=== PATIENT | female | born 2000 | race Caucasian/White ===

== ENCOUNTER 2023-07-10 18:31 | Inpatient (IN) ==
--- NOTE | 2023-07-10 18:42 | Emergency Department Note ---
Impression & Plan Depression with suicidal ideation ED Provider Note NAME: ERIK PRATT AGE: 23 SEX: F : 2000 ARRIVES VIA: Walk-In INFORMANT: Patient, ED PROVIDER(S): Wallace Correa MD CHIEF COMPLAINT: Suicidal ideation, overdose MEDICAL DECISION MAKING: Patient presents due to concern for suicidal ideation and taking 200 mg of hydroxyzine. Patient had blood work completed was to medically cleared. Patient has a normal white count hemoglobin and platelet count kidney function is unremarkable. Urinalysis without evidence of infection. test negative. Salicylate Tylenol and alcohol negative urine drug screen negative. She was seen and evaluated by psych bilingual case manager and referrals were made. Patient was accepted by [facility] and was admitted for inpatient treatment. Discussion w/ other healthcare providers: None Prior /Outside records reviewed: None Differential diagnosis: Mood disorder, infection, hypoglycemia, electrolyte abnormalities, dehydration, medication side effect among others were considered. Diagnostics, as interpreted by me: ECG: Normal sinus rhythm, rate of 70, normal intervals, normal axis no ST elevations. Medical decision rules: Suicide risk severity score Imaging studies: I informally interpreted the patient's with formal report to follow. HPI: Patient presents due to concern for suicidal ideation and had taken 225 mg of hydroxyzine around 5 PM. Patient states that she does feel little bit foggy but does not complain of any tiredness. Patient denies any chest pains or shortness of breath no nausea vomiting. 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 Patient is from [place]. Patient uses alcohol occasionally as well as weed but denies any tobacco use. Patient states that her sleep has been too much sleeping 11 hours regularly. Patient states that she has been limiting what she is eating and skipping meals and does have a history of eating issues. The patient was seen at crisis today and referred here for further evaluation and treatment. The patient does follow with caps and crisis. Patient states she is compliant with her medications no recent changes or missed doses. She states that she feels safe at home and does live by herself. Patient denies any HI or AVH. 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 Uses alcohol socially uses marijuana occasionally. Denies tobacco use. HOME MEDICATIONS: See Below ALLERGIES: See Below VITALS: See Below PHYSICAL EXAMINATION: GENERAL: NAD, non-toxic. EYE EXAM: Normal conjunctiva. PERRL, no anisocoria and EOM's grossly intact w/o pain. OROPHARYNX: Moist mucus membranes, grossly normal dentition. NECK: Trachea midline, no stridor. Supple, no nuchal rigidity, no adenopathy, non-tender. No signs of meningismus. FROM of the neck with good chin to chest and neck extension. LUNGS: Clear to auscultation. Normal chest wall mechanics. HEART: NSR, no MRG. ABDOMEN: Abdomen soft, non-tender, no masses, no rebound or guarding. BACK: No CVA TTP. SKIN: No rashes and no bruising. Superficial cuts to the left upper extremity. UPPER EXTREMITIES: Upper extremities are grossly normal. LOWER EXTREMITIES: Grossly normal, no edema. NEURO EXAM: A&O x3, cranial nerves II-XII grossly intact, normal speech, moves all 4 extremities. Psych: Positive SI with plan, denies SI rate AVH. Past Med/Surg History Social History Smoking Status: Never smoker Preferred Language: Albanian Communication Ability: Effective Training Developer Required: No Beliefs That Will Affect Care: None Feels Safe at Home: Yes Gender Identity: Female Assistive Devices: None Allergies Allergies Allergy/AdvReac Type Severity Reaction Status Date / Time No Known Drug Allergies Allergy Verified 03/28/23 16:03 Home Meds Home Medications Medication Instructions Recorded Confirmed famotidine [Pepcid] 20 mg PO BID 03/28/23 07/10/23 levocetirizine 5 mg tablet (Xyzal) 5 mg PO BID 03/28/23 03/28/23 desvenlafaxine 100 mg 100 mg PO DAILY 07/10/23 07/10/23 tablet,extended release 24 hr lamotrigine 150 mg tablet 150 mg PO DAILY 07/10/23 07/10/23 montelukast 10 mg tablet 10 mg DAILY 07/10/23 07/10/23 omalizumab 150 mg/mL subcutaneous mg subcut 07/10/23 syringe (Xolair) Results & Data (ED) Vital Signs Vital Signs - 24 hr 07/10/23 18:33 07/10/23 22:46 Temperature 36.6 C Temperature Source Temporal Artery Scan Pulse Rate 89 Respiratory Rate 18 Respiratory Effort / Characteristics Non-Labored Spontaneous Respiratory Depth Normal Respiratory Pattern Regular Blood Pressure 146/88 H Blood Pressure Mean 107 Blood Pressure Position Sitting Pulse Oximetry 100 Oxygen Delivery Method Room Air Room Air Sepsis Recent Fever Within 48 Hours No Sepsis New/Unexplained Change in Mental Status N/A Sepsis Action Taken by Nursing No Action Required Home Medications Current Medication List: was personally reviewed by me Laboratory Data Attestation: I reviewed the patient's lab results. 07/10/23 18:56 07/10/23 18:56 Lab Results 07/10/23 Range/Units 18:56 WBC 5.22 (4.8-10.8) K/ul RBC 4.23 (4.20-5.40) M/uL Hgb 12.5 (12.0-16.0) g/dl Hct 36.9 L (37.0-47.0) % MCV 87.2 (80.0-100.0) fL MCH 29.6 (25.0-34.0) pg MCHC 33.9 (32.0-36.0) g/dL RDW Std Deviation 38.9 (36.4-46.3) fL RDW Coeff of Felicity 12.2 (11.5-14.5) % Plt Count 329 (130-400) K/uL MPV 8.9 L (9.4-12.4) fL Immature Gran % (Auto) 0.2 % Neut % (Auto) 46.9 % Lymph % (Auto) 43.1 % [place] % (Auto) 7.1 % Eos % (Auto) 2.1 % Baso % (Auto) 0.6 % Neut # (Auto) 2.45 (1.40-6.50) K/uL Lymph # (Auto) 2.25 (1.20-3.40) K/uL [place] # (Auto) 0.37 (0.11-0.59) K/uL Eos # (Auto) 0.11 (0.00-0.50) K/uL Baso # (Auto) 0.03 (0.00-0.20) K/uL Immature Gran # (Auto) 0.01 (0.01-0.20) K/uL Sodium 138 (136-145) mmol/L Potassium 3.8 (3.5-5.1) mmol/L Chloride 106 (98-107) mmol/L Carbon Dioxide 25 (21-32) mmol/L Anion Gap 7 (3-11) BUN 19 (6-23) mg/dl Creatinine 0.82 (0.6-1.2) mg/dl Est Cr Clr Drug Dosing 106.5 ml/min Est GFR ( Amer) 115.3 ml/min Est GFR (Non-Af Amer) 99.5 ml/min BUN/Creatinine Ratio 23.2 H (10-20) Glucose 102 H (70-99(Fasting)) mg/dl Calcium 9.4 (8.6-10.3) mg/dl Total Bilirubin 0.4 (0.2-1.0) mg/dl AST 13 (13-39) U/L ALT 10 (7-52) U/L Alkaline Phosphatase 67 (34-104) U/L Total Protein 7.8 (6.0-8.3) gm/dl Albumin 4.5 (3.4-5.0) gm/dl Globulin 3.3 (2.5-4.0) gm/dl Albumin/Globulin Ratio 1.4 (0.9-2) TSH 3.359 (0.300-4.500) uIu/ml Urine Color Yellow Urine Appearance Clear (Clear) Urine pH 7.0 (4.5-7.5) Ur Specific [place] 1.009 (1.000-1.030) Urine Protein Negative (Negative) Urine Glucose (UA) Negative (Negative) Urine Ketones Negative (Negative) Urine Blood Negative (Negative) Urine Nitrite Negative (Negative) Urine Bilirubin Negative (Negative) Urine Urobilinogen Negative (Negative) Ur Leukocyte Esterase Negative (Negative) Urine Test Negative (Negative) Salicylates < 3.0 L (3.0-30) mg/dl Urine Opiates Screen Neg (Neg) Ur Methadone, Qual Neg (Neg) Acetaminophen < 3 L (10-30) ug/ml Urine Barbiturates Neg (Neg) Ur Phencyclidine (PCP) Neg (Neg) U Amphetamin/Meth Scrn Neg (Neg) MDMA (Ecstasy) Screen Neg (Neg) U Benzodiazepines Scrn Neg (Neg) Ur Cocaine Metabolite Neg (Neg) U Marijuana (THC) Screen Neg (Neg) Ethyl Alcohol mg/dL < 10.0 (<10.0) mg/dl Discharge Plan Visit Data Chief Complaint: Mental Health Evaluation Stated Complaint: SUCIDAL ED Provider: Wallace Correa Discharge Problem: Depression with suicidal ideation Patient Disposition: Admitted As Inpatient Discharge Instructions Interventions: ED Discharge Assessment Last Done: 07/10/23 22:46
[2023-07-10 19:46] LABS: Albumin Globulin Ratio 1.4 (0.9-2); Albumin Level 4.5 gm/dl (3.4-5.0); BUN Creatinine Ratio 23.2 (10-20); Bilirubin,Total 0.4 mg/dl (0.2-1.0); Calcium 9.4 mg/dl (8.6-10.3); Creatinine Clr Calc Pharmacy 106.5 ml/min; Est GFR (African American) 115.3 ml/min; Est GFR (Non-African American) 99.5 ml/min; Globulin 3.3 gm/dl (2.5-4.0); Potassium 3.8 mmol/L (3.5-5.1); Total Protein 7.8 gm/dl (6.0-8.3)
[2023-07-10 19:47] LABS: Appearance Urine Clear (Clear); Bilirubin Urine Negative (Negative); Blood Urine Negative (Negative); Color Urine Yellow; Glucose Urine UA Negative (Negative); Ketones Urine Negative (Negative); Leukocyte Esterase Urine Negative (Negative); Nitrite Urine Negative (Negative); Protein Urine Negative (Negative); Specific Gravity Urine 1.009 (1.000-1.030); Urobilinogen Urine Negative (Negative)
[2023-07-10 19:48] LABS: Acetaminophen < 3 ug/ml (10-30); Basophils # (auto) 0.03 K/uL (0.00-0.20); Basophils % (auto) 0.6 %; Eosinophils # (auto) 0.11 K/uL (0.00-0.50); Eosinophils % (auto) 2.1 %; Hematocrit (blood only) 36.9 % (37.0-47.0); Hemoglobin 12.5 g/dl (12.0-16.0); Immature Granulocytes # (auto) 0.01 K/uL (0.01-0.20); Immature Granulocytes % (auto) 0.2 %; Lymphocytes # (auto) 2.25 K/uL (1.20-3.40); Lymphocytes % (auto) 43.1 %; Mean Corpuscular Hemoglobin 29.6 pg (25.0-34.0); Mean Corpuscular Hgb Conc 33.9 g/dL (32.0-36.0); Mean Corpuscular Volume 87.2 fL (80.0-100.0); Mean Platelet Volume 8.9 fL (9.4-12.4); Monocytes # (auto) 0.37 K/uL (0.11-0.59); Monocytes % (auto) 7.1 %; Neutrophils # (auto) 2.45 K/uL (1.40-6.50); Neutrophils % (auto) 46.9 %; Platelet Count 329 K/uL (130-400); RDW Coefficient of Variation 12.2 % (11.5-14.5); RDW Standard Deviation 38.9 fL (36.4-46.3); Red Blood Count 4.23 M/uL (4.20-5.40); Salicylate < 3.0 mg/dl (3.0-30); White Blood Count 5.22 K/ul (4.8-10.8)
[2023-07-10 19:49] LABS: Pregnancy Test, Urine Negative (Negative)
[2023-07-10 20:02] LABS: Thyroid Stimulating Hormone 3.359 uIu/ml (0.300-4.500)
[2023-07-10 20:15] LABS: Amphetamines+Metham, Urine Neg (Neg); Barbiturates, Urine Neg (Neg); Benzodiazepine, Urine Neg (Neg); Cocaine, Urine Neg (Neg); MDMA (Ecstacy), Urine Neg (Neg); Marijuana, Urine Neg (Neg); Methadone, Urine Neg (Neg); Opiate, Urine Neg (Neg); Phencyclidine, Urine Neg (Neg)
[2023-07-10] MEDS ORDERED: ACETAMINOPHEN 325 MG TAB PO PRN (23:04)
[2023-07-10] MEDS ORDERED: BISMUTH SUBSALICYLATE LIQD 236 ML PO PRN (23:04)
[2023-07-10] MEDS ORDERED: MAGNESIUM HYDROXIDE SUSP 30 ML UDC PO PRN (23:04)
[2023-07-10] MEDS ORDERED: SODIUM CHLORIDE 0.65% NA SOLN 45 ML (OCEAN) PRN (23:04)
--- OUTSIDE RECORDS SUMMARY | 2023-07-11 08:46 | External Medical Summary | Summary of Care ---
Author Name Unknown Organization [facility] Address [address] [place] [address] Phone [phone] Care Team Providers Care Assembler [employer] Name Role Phone Unavailable Primary Care Provider Unavailabl e Reason for Visit * Reason Comments Medication Administration Xolair * Precert (Within 10 days (routine)) - Authorized Specialty Diagnoses / Procedures Referred By Dayami t Referred To Contact Allergy & Immunology Diagnoses Idiopathic urticaria Procedures INJECTION, OMALIZUMAB, 5 MG Fredis Dave MD [address] [facility] [place] [address] Fredis Dave MD [address] [facility] [place] [address] Referral ID Status Reason Start Date Expiration Date V isits Requested Visits Authorized [id number] Authorized Precert 03/19/2023 03/19/2024 [id number] Encounter Details Date Type Department Care Team (Late st Contact Info) Description 06/14/2023 9:00 AM EST Nurse Only Allergy/Immunology Kimmie Casanova [place] [address] [facility] [place] [id number] Jocelyne Nurse Allergy [facility] [address] [facility] [place] [address] Medication Administration (Xolair) Allergies No known active allergiesdocumented as of this encounter (statuses as of 06/14/2023) Medications Medication Sig Dispensed Refills Start Date End Date Status Nortrel (28) 1-35 MG-MCG Oral Tablet Take 1 Tablet by mouth in the morning. 0 06/28/2021 Active hydrOXYzine HCl 25 MG Oral Tablet Use 1 tablet every 4-6 hours for worsening itching, hives or swelling episodes 35 Tablet 2 08/23/2021 Active Azelastine HCl 0.1 % Nasal Solution (Astelin) Administer 2 Sprays into nostril in the morning and 2 Sprays before bedtime. 90 mL 3 08/28/2022 Active EPINEPHrine 0.3 MG/0.3ML Injection Solution Auto-injector (Autoinjector) For a severe reaction: Inject in outer thigh following instructions on package and go to the Emergency room. 2 Each 2 09/10/2022 Active Xolair 150 MG/ML Subcutaneous Solution Prefilled Syringe (Omalizumab) Inject 300 mg under the skin every 4 weeks. 2 mL 11 09/10/2022 Active Levocetirizine Dihydrochloride 5 MG Oral Tablet (Xyzal Allergy 24HR) Take 1 Tablet by mouth every evening. 90 Tablet 3 09/24/2022 Active buPROPion HCl ER (XL) 300 MG Oral Tablet Extended Release 24 Hour (Wellbutrin XL) TAKE 1 TABLET BY MOUTH EVERY DAY IN THE MORNING 0 02/15/2023 Active busPIRone HCl 5 MG Oral Tablet (Buspar) Take 1 Tablet by mouth in the morning and 1 Tablet before bedtime. 0 03/05/2023 Active Famotidine 20 MG Oral Tablet (Pepcid) TAKE 1 TABLET BY MOUTH IN THE MORNING AND BEFORE BEDTIME 180 Tablet 2 05/29/2023 Active Montelukast Sodium 10 MG Oral Tablet (Singulair) TAKE 1 TABLET BY MOUTH EVERY MORNING 90 Tablet 2 05/29/2023 Active Hospital, Clinic, or Other Facility Administered Medication Ordered Dose Route Frequency Start Date End Date Status Omalizumab (Xolair) inj 300 mgIndications:Chronic urticaria,Idiopathic urticaria 300 mg SC [id number] 10/11/2022 Active documented as of this encounter (statuses as of 06/14/2023) Active Problems Problem Noted Date Diagnosed Date Chronic urticaria 08/14/2021 Overview: since 05/13/21 Seasonal allergic rhinitis due to pollen 022 documented as of this encounter (statuses as of 06/14/2023) Social History Tobacco Use Types Packs/Day Years Used Date Smoking Tobacco: Never Smokeless Tobacco: Never Comments:No passive smoke ex possure Alcohol Use Standard Drinks/Week Comments Yes 0 (1 standard drink = 0.6 oz pur e alcohol) Occasionally Sex and Gender Information Value Date Recorded Sex Assigned at Not on file Gender Identity Not on file Sexual Orientation Not on file Job Start Date Occupation Industry Not on file Not on file Not on file documented as of this encounter Nursing Notes * Ada Valverde LPN - 06/14/2023 9:54 AM EST Pt with no clinical changes since injections. Injection sites with no wheal and no flare. Pt verbalized understanding to keep epi pen on his/her person for next 24 hours * Ada Valverde LPN - 06/14/2023 9:33 AM EST Pt arrived in clinic for Xolair injection. Pt has Epi pen on her person. Pt with no recent hive flare ups or other health issues today. Pt aware to stay in clinic 30 minutes post injection. documented in this encounter Plan of Treatment Upcoming Encounters Date Type Department Care Team (Late st Contact Info) Description 09/19/2023 10:30 AM EDT Office Visit Allergy/Immunology [place] [facility]a Nieto [address] [place] [id number] Shayla Lainez PA-C [address] [place] [address] [id number] Health Maintenance Due Date Last Done Comments Hepatitis B (1 of 3 - 3-dose series) 2000 GARDASIL-HPV IMMUNIZATION SERIES (1 - 2-dose series) 2009 Depression Screening 2010 HIV Screening 2013 Hepatitis C Screening 2016 DTaP,Tdap,and Td Vaccines (1 - Tdap) 2017 Pap Smear 2019 COVID-19 Vaccine Completed 02/25/2023, 02/19/2022, 05/02/2021 Influenza Vaccine (FLU shot) Completed 06/2022, 02/19/2022, 02/27/2021 MENINGOCOCCAL (MENACTRA/MENVEO) Aged Out No longer eligible b ased on patient's age to complete this topic Pneumococcal Vaccine: Pediatrics (0 to 5 Years) and At-Risk Patients (6 to 64 Years) Aged Out No longer eligible b ased on patient's age to complete this topic documented as of this encounter Medical Devices Not on filedocumented as of this encounter Visit Diagnoses Diagnosis Chronic urticaria- Primary Other specified urticaria documented in this encounter Administered Medications Active Administered Medications - up to 3 most recent administrations Medication Order MAR Action Action Date Dose Rate Site Omalizumab (Xolair) inj 300 mg 300 mg, Subcutaneous, [id number], First dose on Ver[place] 10/11/22 at 1130, Until Discontinued, Inject 300mg ( 2 syringes) every 4 weeks subcutaneously Given 06/14/2023 9:24 AM EST 300 mg Arm Left Upper Given 05/14/2023 4:01 PM EST 300 mg Ar m Left Upper Given 04/08/2023 10:26 AM EST 300 mg A rm Left Upper documented in this encounter
--- OUTSIDE RECORDS SUMMARY | 2023-07-11 08:46 | External Medical Summary | Summary of Care ---
Author Name Unknown Organization [facility] Address [address] [place] [address] Phone [phone] Care Team Providers Care Babcock Tester Name Role Phone Unavailable Primary Care Provider Unavailabl e Reason for Visit * Reason Onset Date Comments Precert In Process 03/15/2023 Xolair [facility] Ca rol Encounter Details Date Type Department Care Team (Late st Contact Info) Description 03/15/2023 [facility] [address] [place] [address] Fredis Dave MD [address] [place] [address] Precert In Process ([email or web address] Jaclyn ) Allergies No known active allergiesdocumented as of this encounter (statuses as of 03/19/2023) Medications Medication Sig Dispensed Refills Start Date End Date Status Nortrel (28) 1-35 MG-MCG Oral Tablet Take 1 Tablet by mouth in the morning. 0 06/28/2021 Active hydrOXYzine HCl 25 MG Oral Tablet Use 1 tablet every 4-6 hours for worsening itching, hives or swelling episodes 35 Tablet 2 08/23/2021 Active Montelukast Sodium 10 MG Oral Tablet (Singulair) Take 1 Tablet by mouth every morning. 90 Tablet 3 05/30/2022 Active Famotidine 20 MG Oral Tablet (Pepcid) Take 1 Tablet by mouth in the morning and 1 Tablet before bedtime. 180 Tablet 3 05/30/2022 Active Azelastine HCl 0.1 % Nasal Solution [...] 1 Tablet before bedtime. 0 03/05/2023 Active Hospital, Clinic, or Other Facility Administered Medication Ordered Dose Route Frequency Start Date End Date Status Omalizumab (Xolair) inj 300 mgIndications:Chronic urticaria,Idiopathic urticaria 300 mg SC [id number] 10/11/2022 Active documented as of this encounter (statuses as of 03/19/2023) Active Problems Problem Noted Date Diagnosed Date Chronic urticaria 08/14/2021 Overview: since 05/13/21 Seasonal allergic rhinitis due to pollen 022 documented as of this encounter (statuses as of 03/19/2023) Social History Tobacco Use Types Packs/Day Years [...] on file documented as of this encounter Miscellaneous Notes * Telephone Encounter - LILLIAM Winter - 03/15/2023 10:24 AM EDT Requested auth. MALLORY PRATT Lugo: [id number] - PA help? Call us at Status Sent to [facility] Xolair 150MG/ML syringes Form [employer] [place] Form (2016 NCPDP) * Telephone Encounter - Ada Valverde, ANGELINA - 03/15/2023 9:49 AM EDT Images from the original note were not included. [facility] Allergy Medicine Pre-Cert Request Medication/Disease State Information: Medication: Xolair 300mg ( 2 150mg prefilled syringes Is the patient able and willing to self inject? No. Reason: Pt is anxious and passes out while trying to self inject. Patient will continue to receive injections in-clinic. Has patient been prescribed an EpiPen: Yes Informed consent obtained: Yes Diagnosis (including ICD-10): Chronic Urticaria L50.8 Clinic Administered Medication - route pre-cert request to [id number] Medication(s) Tried/Failed/Contraindicated: See corresponding visit note(s) for additional supporting clinical information. Office Information: Prescriber: Fredis Dave Encounter Date: 08/23/2022 SUBJECTIVE: Mallory is here today for follow-up of her chronic urticaria and chronic allergic rhinitis. Since ourlast visit approximately 4 months ago, she believes that her urticaria may be slightly getting worse. However she notes that she has had increased stress and does relate her urticaria to stress in general. As you may recall she started developed hives in April of 2021 and had daily hives until the summertime. She did well for unclear reasons until February when her hives returned. At our last visit we had change her to a regimen of Pepcid 20 mg twice daily, Xyzal 5 mg twice daily and Singulair 10 mg daily. She does use hydroxyzine on a as needed basis for any increased hives but she also reports that the hydroxyzine makes her slightly tired. She reports no lip swelling, tongue swelling, nor throat involvement. The patient also does have occasional seasonal allergies primarily in the spring and the summer. Previously she had been on Astelin 2 sprays each nostril twice daily but she ran out of this. She doeshope to get a prescription for this as she felt that this was of benefit. Patient Active Problem List Diagnosis Code Chronic urticaria L50.8 Seasonal allergic rhinitis due to pollen J30.1 Past Surgical History: Procedure Laterality Date REMOVAL OF ADENOIDS, UNDER AGE 10 Removal for obstructive airway symptoms around age 5 Current Outpatient Medications Medication Sig Dispense Refill Azelastine HCl 0.1 % Nasal Solution Administer 2 Sprays into nostril in the morning and 2 Sprays before bedtime. Nortrel 1/35 (28) 1-35 MG-MCG Oral Tablet Take 1 Tablet by mouth in the morning. hydrOXYzine HCl 25 MG Oral Tablet Use 1 tablet every 4-6 hours for worsening itching, hives or swelling episodes 35 Tablet 2 Fluticasone Propionate 50 MCG/ACT Nasal Suspension Administer into each nostril 1 [place] in the morning AND 1 [place] before bedtime. 16 g 5 Levocetirizine Dihydrochloride 5 MG Oral Tablet (Xyzal Allergy 24HR) Take by mouth 1 Tablet in the morning AND 1 Tablet before bedtime. Montelukast Sodium 10 MG Oral Tablet (Singulair) Take 1 Tablet by mouth every morning. 90 Tablet 3 Famotidine 20 MG Oral Tablet (Pepcid) Take 1 Tablet by mouth in the morning and 1 Tablet before bedtime. 180 Tablet 3 No current facility-administered medications for this visit. Allergies as of 08/23/2022 (No Known Allergies) Family History Problem Relation Age of Onset Allergies Father Hayfever Social History Tobacco Use Smoking status: Never Smokeless tobacco: Never Tobacco comments: No passive smoke expossure Vaping Use Vaping Use: Never used Substance Use Topics Alcohol use: Yes Comment: Occasionally Drug use: Never Environment/Occupation/Activities of Daily Living: She is currently living in a 2nd floor apartment. Electric heat with room window air conditioning units. No pets in her apartment. Sleeps on a mattress bed, bedroom floor is hardwood with area rugs. 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 When she is at her parents she is exposed to 2 dogs and a cat and 1 cat at her boyfriend's. BP 106/74 (BP Site: Right Arm, BP Position: Sitting) | Pulse 82 | Resp 16 | Wt 72.3 kg (159 lb 4.8 oz) | BMI 27.20 kg/m | BSA 1.81 m PHYSICAL EXAM: No Acute Distress: Conjunctiva: Normal TM's: Clear Nose: Pale mucosa, Mild inferior turbinate edema, no polyps, no mucopus Oropharynx: Mild erythema and cobblestoning, no lesions or exudates. Neck: No significant adenopathy Lungs: Clear to A&P, no wheezes Cor: RRR, no murmur Skin: No lesions atopic dermatitis; no urticaria or angioedema OBJECTIVE DATA: Component Latest Ref Rng & Units 08/14/2021 BUN 6 - 20 mg/dL 10 Creatinine 0.5 - 1.0 mg/dL 0.8 Estimated Glomerular Filtration Rate >=60 mL/min >90 Sodium 135 - 146 mmol/L 141 Potassium 3.5 - 5.1 mmol/L 4.0 Chloride 98 - 107 mmol/L 105 CO2 22 - 32 mmol/L 25 Anion Gap 7 - 15 mmol/L 11 Glucose 70 - 120 mg/dL 84 Albumin 3.8 - 5.0 g/dL 4.6 AST 10 - 35 U/L 14 Alkaline Phosphatase 35 - 130 U/L 43 Bilirubin, Total <=1.2 mg/dL 0.8 Calcium 8.4 - 10.2 mg/dL 9.8 Protein 6.0 - 8.3 g/dL 7.5 ALT 10 - 35 U/L 10 WBC 4.00 - 10.80 K/uL 5.75 Neutrophils % 40.0 - 75.0 % 54.9 Lymphocytes % 18.0 - 42.0 % 37.6 Monocytes % 1.0 - 11.0 % 6.3 Eosinophils % 0.0 - 6.0 % 1.0 Basophils % 0.0 - 2.0 % 0.2 Absolute Neutrophils 1.80 - 7.70 K/uL 3.16 Absolute Lymphocytes 1.00 - 4.80 K/ul 2.16 Absolute Monocytes 0.00 - 1.10 K/uL 0.36 Absolute Eosinophils 0.00 - 0.70 K/uL 0.06 Absolute Basophils 0.00 - 0.20 K/uL 0.01 WBC 4.00 - 10.80 K/uL 5.75 RBC 3.85 - 5.15 M/uL 4.21 HGB 12.0 - 15.3 g/dL 12.9 HCT 36.0 - 45.2 % 37.9 MCV 81.5 - 97.5 fL 90.0 MCH 27.0 - 34.0 pg 30.6 MCHC 32.0 - 36.0 g/dL 34.0 RDW 11.5 - 15.5 % 12.2 PLT 140 - 400 K/uL 291 MPV 6.6 - 11.1 fL 9.7 ESR <20 mm/hour 4 TSH 0.27 - 4.20 uIU/mL 2.12 Allergy skin testing 08/14/21 revealed positive reactions to cedar and mulberry tree pollens and ragweed pollen, all other environmental allergens tested were negative in the face of adequate positivehistamine controls. Review of allergy serum IgE determinations from 05/14/16 physicians laboratory services [facility] revealed all negative results to pollens, molds, dust mites and animal danders tested. ASSESSMENT: ICD-10-CM 1. Chronic urticaria L50.8 2. Seasonal allergic rhinitis due to pollen J30.1 3. 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 Full workup to assess for any underlying disorders that may contribute to her urticaria has beenunremarkable. She is still having breakthrough symptoms of urticaria and believes that her urticaria may be slightly worsening since our last visit due to increased stress levels. I did review that stress can be an aggravating factor of urticaria. For now she will continue on Xyzal 5 mg twice dailyand Pepcid 20 mg twice daily. In addition she will continue Singulair 10 mg every morning. She doeshave hydroxyzine as needed for any breakthrough urticaria. I did review with her extensively the role of Xolair, anti IgE therapy, in cases like this. Informational materials were given to her and she will strongly consider this in the near future and she will get back to us on a decision. I also did inform her of the overall process, the risks and benefits, and overall need for an EpiPen should she start this. For the patient's chronic allergic rhinitis, she will continue on Astelin 2 sprays each nostril twice daily as she feels that this medication works best for her. The Singulair also should be helpful for her allergic rhinitis. Thank you very much for allowing myself to participate in the care of your patient. Please do not hesitate to contact our office should you have any questions or concerns. Fredis Dave MD Allergy and Immunology [facility] (This note was completed using the dictation program Fluency Direct. As such, there may be misspellings, word substitutions, or other variations that should not change the essence of the clinical content of this encounter note.If there is need for further clarification, please direct questions to the provider listed above.) 1531 documented in this encounter Plan of Treatment Upcoming Encounters Date Type Department Care Team (Late st Contact Info) Description 09/19/2023 10:30 AM EDT Office Visit Allergy/Immunology [facility] Casanova [place] [address] [place] [address] Fredis Dave MD [address] [place] [address] Health Maintenance Due Date Last Done Comments Hepatitis B (1 of 3 - 3-dose series) 1998 GARDASIL-HPV IMMUNIZATION SE [place] (1 - 2-dose series) 2009 Depression Screening 2010 Gonorrhea / Chlamydia Screen 2013 HIV Screening 2013 Hepatitis C Screening 2016 DTaP,Tdap,and Td Vaccines (1 - Tdap) 2017 Pap Smear 2019 Influenza Vaccine (FLU shot) (#1) 2023 COVID-19 Vaccine Completed 02/25/2023 MENINGOCOCCAL (MENACTRA/MENVEO) Aged Out No longer eligible based on patient's age to complete this topic Pneumococcal Vaccine: Pediat rics (0 to 5 Years) and At-Risk Patients (6 to 64 Years) Aged Out No longer eligi ble based on patient's age to complete this topic documented as of this encounter Medical Devices Not on filedocumented as of this encounter"
--- OUTSIDE RECORDS SUMMARY | 2023-07-11 08:46 | External Medical Summary | Summary of Care ---
Author Name Unknown Organization [facility] Address [address] [place] [address] Phone [phone] Care Team Providers Care Nuclear Fuels Reclamation Engineer Name Role Phone Unavailable Primary Care Provider Unavailabl e Reason for Visit * Reason Comments eRx-Medication Refill Encounter Details Date Type Department Care Team (Late st Contact Info) Description 05/29/2023 Refill Allergy/Immunology Kimmie Casanova [place] [address] [place] [address] Cisco Jeffries MD [address] [facility] [place] [address] Allergies No known active allergiesdocumented as of this encounter (statuses as of 05/29/2023) Medications Medication Sig Dispensed Refills Start Date End Date Status Nortrel (28) 1-35 MG-MCG Oral Tablet Take 1 Tablet by mouth in the morning. 0 2 Active hydrOXYzine HCl 25 MG Oral Tablet Use 1 tablet every 4-6 hours for worsening itching, hives or swelling episodes 35 Tablet 2 2 Active Azelastine HCl 0.1 % Nasal Solution (Astelin) Administer 2 Sprays into nostril in the morning and 2 Sprays before bedtime. 90 mL 3 3 Active EPINEPHrine 0.3 MG/0.3ML Injection Solution Auto-injector (Autoinjector) For a severe reaction: Inject in outer thigh following instructions on package and go to the Emergency room. 2 Each 2 3 Active Xolair 150 MG/ML Subcutaneous Solution Prefilled Syringe (Omalizumab) Inject 300 mg under the skin every 4 weeks. 2 mL 11 3 Active Levocetirizine Dihydrochloride 5 MG Oral Tablet (Xyzal Allergy 24HR) Take 1 Tablet by mouth every evening. 90 Tablet 3 3 Active buPROPion HCl ER (XL) 300 MG Oral Tablet Extended Release 24 Hour (Wellbutrin XL) TAKE 1 TABLET BY MOUTH EVERY DAY IN THE MORNING 0 3 Active busPIRone HCl 5 MG Oral Tablet (Buspar) Take 1 Tablet by mouth in the morning and 1 Tablet before bedtime. 0 3 Active Famotidine 20 MG Oral Tablet (Pepcid) TAKE 1 TABLET BY MOUTH IN THE MORNING AND BEFORE BEDTIME 180 Tablet 2 4 Active Montelukast Sodium 10 MG Oral Tablet (Singulair) TAKE 1 TABLET BY MOUTH EVERY MORNING 90 Tablet 2 4 Active Montelukast Sodium 10 MG Oral Tablet (Singulair) Take 1 Tablet by mouth every morning. 90 Tablet 3 3 024 Discontinued Famotidine 20 MG Oral Tablet (Pepcid) Take 1 Tablet by mouth in the morning and 1 Tablet before bedtime. 180 Tablet 3 3 024 Discontinued Hospital, Clinic, or Other Facility Administered Medication Ordered Dose Route Frequency Start Date End Date Status Omalizumab (Xolair) inj 300 mgIndications:Chronic urticaria,Idiopathic urticaria 300 mg SC [id number] 10/11/2022 Active documented as of this encounter (statuses as of 05/29/2023) Active Problems Problem Noted Date Diagnosed Date Chronic urticaria 08/14/2021 Overview: since 05/13/21 Seasonal allergic rhinitis due to pollen 022 documented as of this encounter (statuses as of 05/29/2023) Social History Tobacco Use Types Packs/Day Years [...] encounter Miscellaneous Notes * Telephone Encounter - Cisco Jeffries MD - 05/29/2023 7:58 AM ESTSigned Prescriptions: Disp Refills Famotidine 20 MG Oral Tablet (Pepcid) 180 Ta*2 Sig: TAKE 1 TABLET BY MOUTH IN THE MORNING AND BEFORE BEDTIME Authorizing Provider: CISCO JEFFRIES Montelukast Sodium 10 MG Oral Tablet (Sing*90 Tab*2 Sig: TAKE 1 TABLET BY MOUTH EVERY MORNING Authorizing Provider: CISCO JEFFRIES * Telephone Encounter - Daniella Shah LPN - 05/29/2023 7:42 AM ESTPending Prescriptions: Disp Refills Famotidine 20 MG Oral Tablet [Pharmacy Med*180 Ta*2 Sig: TAKE 1 TABLET BY MOUTH IN THE MORNING AND BEFORE BEDTIME Montelukast Sodium 10 MG Oral Tablet [Phar*90 Tab*2 Sig: Take 1 Tablet by mouth every morning. * Telephone Encounter - Daniella Shah LPN - 05/29/2023 7:42 AM EST Pending Prescriptions: Disp Refills Famotidine 20 MG Oral Tablet (Pepcid) [Ph*180 Ta*2 Sig: TAKE 1 TABLET BY MOUTH IN THE MORNING AND BEFORE BEDTIME Montelukast Sodium 10 MG Oral Tablet (Sin*90 Tab*2 Sig: TAKE 1 TABLET BY MOUTH EVERY MORNING Last Visit: 03/15/2023 (in office), Visit date not found (telemedicine) Next Visit: 09/19/2023 Last date the medication was ordered: 05/30/22. Health Maintenance Topic Date Due Hepatitis B (1 of 3 - 3-dose series) Never done GARDASIL-HPV IMMUNIZATION SERIES (1 - 2-dose series) Never done Depression Screening Never done Gonorrhea / Chlamydia Screen Never done HIV Screening Never done Hepatitis C Screening Never done DTaP,Tdap,and Td Vaccines (1 - Tdap) Never done Pap Smear Never done Influenza Vaccine (FLU shot) (1) Never done COVID-19 Vaccine Completed MENINGOCOCCAL (MENACTRA/MENVEO) Aged Out Pneumococcal Vaccine: Pediatrics (0 to 5 Years) and At-Risk Patients (6 to 64 Years) Aged Out Labs: Lab Results Component Value Date/Time CREATININE - [facility] 0.8 08/14/2021 03:17 PM Lab Results Component Value Date/Time POTASSIUM - [facility] 4.0 08/14/2021 03:17 PM Lab Results Component Value Date/Time TSH - [facility] 2.12 08/14/2021 03:17 PM No results found for: "LDL" Lab Results Component Value Date/Time ALT - [facility] 10 08/14/2021 03:17 PM Hemoglobin AIC Results: No results found for: "HEMOGLOBIN A1C" documented in this encounter Plan of Treatment Upcoming Encounters Date Type Department Care Team (Late st Contact Info) Description 09/19/2023 10:30 AM EDT Office Visit Allergy/Immunology [facility] Casanova [place] [address] [place] [address] Shayla Lainez PA-C [address] [place] [address] Health Maintenance Due Date Last Done Comments [...]
--- OUTSIDE RECORDS SUMMARY | 2023-07-11 08:46 | External Medical Summary | Summary of Care ---
Author Name Unknown Organization [facility] Address [address] [place] [address] Phone [phone] Care Team Providers Care Silica Mixer Operator Name Role Phone Unavailable Primary Care Provider Unavailabl e Reason for Visit * Reason Onset Date Comments Medication Management 04/05/2023 Xolair rec eived in clinic Encounter Details Date Type Department Care Team (Late st Contact Info) Description 04/05/2023 Telephone Allergy[facility]Immunology [facility] [address] [place] [address] Fredis Dave MD [address] [place] [address] Medication Management (Xolair received in ... Allergies No known active allergiesdocumented as of this encounter (statuses as of 04/05/2023) Medications Medication Sig Dispensed Refills Start Date [...] 300 mgIndications:Chronic urticaria,Idiopathic urticaria 300 mg SC [id number] 10/11/2022 Active documented as of this encounter (statuses as of 04/05/2023) Active Problems Problem Noted Date Diagnosed Date Chronic urticaria 08/14/2021 Overview: since 05/13/21 Seasonal allergic rhinitis due to pollen 022 documented as of this encounter (statuses as of 04/05/2023) Social History Tobacco Use Types Packs/Day Years [...] encounter Miscellaneous Notes * Telephone Encounter - dAa Valverde LPN - 04/05/2023 8:25 AM EST My chart message sent asking pt to schedule. * Telephone Encounter - Ada Valverde LPN - 04/05/2023 8:19 AM EST Pt's xolair received in clinic last injection was 03/01/23 documented in this encounter Plan of Treatment Upcoming Encounters Date Type Department Care Team (Late st Contact Info) Description 04/08/2023 10:15 AM EST Nurse Only Allergy/Immunology Kimmie Casanova [place] [address] [place] [address] Jocelyne, Nurse Allergy [facility] [address] [place] [address] 09/19/2023 10:30 AM EDT Office Visit Allergy/Immunology [facility] [address] [place] [address] Fredis Dave MD [address] [place] [address] Health Maintenance Due Date Last Done Comments [...]
--- OUTSIDE RECORDS SUMMARY | 2023-07-11 08:46 | External Medical Summary | Summary of Care ---
Author Name Unknown Organization [facility] Address [address] [place] [address] Phone [phone] Care Team Providers Care Art Editor Name Role Phone Unavailable Primary Care Provider Unavailabl e Reason for Visit * Reason Comments Medication Administration Xolair * Precert (Within 10 days (routine)) - Authorized Specialty Diagnoses / Procedures Referred By Dayami t Referred To Contact Allergy & Immunology Diagnoses Idiopathic urticaria Procedures INJECTION, OMALIZUMAB, 5 MG Fredis Dave MD [address] [place] [address] Fredis Dave MD [address] [place] [address] Referral ID Status Reason Start Date Expiration Date V isits Requested Visits Authorized [id number] Authorized Precert 03/19/2023 03/19/2024 [id number] Encounter Details Date Type Department Care Team (Late st Contact Info) Description 04/08/2023 10:15 AM EST Nurse Only Allergy/Immunology Kim[facility] Casanova [place] [address] [facility] [place] [address] Jocelyne Nurse Allergy [facility] [address] [place] [address] Medication Administration (Xolair) Allergies No known active allergiesdocumented as of this encounter (statuses as of 04/08/2023) Medications Medication Sig Dispensed Refills Start Date [...] 300 mgIndications:Chronic urticaria,Idiopathic urticaria 300 mg SC [id number] 10/11/2022 Active documented as of this encounter (statuses as of 04/08/2023) Active Problems Problem Noted Date Diagnosed Date Chronic urticaria 08/14/2021 Overview: since 05/13/21 Seasonal allergic rhinitis due to pollen 022 documented as of this encounter (statuses as of 04/08/2023) Social History Tobacco Use Types Packs/Day Years [...] Nursing Notes * Ada Valverde LPN - 04/08/2023 10:51 AM EST Pt with no clinical changes since injections. Injection sites with no wheal and no flare. Pt verbalized understanding to keep epi pen on his/her person for next 24 hours * Ada Valverde LPN - 04/08/2023 10:30 AM EST The pt has been properly identified by confirmation of name and date of . Pt arrived in clinic for Xolair injection. Pt has Epi pen on her person. Pt with recent hive flare ups . Pt aware to stay in clinic 30 minutes post injection. documented in this encounter Plan of Treatment Upcoming Encounters Date Type Department Care Team (Late st Contact Info) Description 09/19/2023 10:30 AM EDT Office Visit Allergy/Immunology Kimmie Casanova [place] [address] [place] [address] Fredis Dave MD [address] [place] [address] Health Maintenance Due Date Last Done Comments [...] of this encounter Visit Diagnoses Diagnosis Chronic urticaria [L50.8]- Primary Other specified urticaria documented in this encounter Administered Medications Active Administered Medications - up to 3 most recent administrations Medication Order MAR Action Action Date Dose Rate Site Omalizumab (Xolair) inj 300 mg 300 mg, Subcutaneous, [id number], First dose on Ver[place] 10/11/22 at 1130, Until Discontinued, Inject 300mg ( 2 syringes) every 4 weeks subcutaneously Given 04/08/2023 10:26 AM EST 300 mg Arm Left Upper Given 03/01/2023 9:17 AM EDT 300 mg Ar m Left Upper Given 01/29/2023 3:19 PM EDT 300 mg Ar m Left Upper documented in this encounter
--- OUTSIDE RECORDS SUMMARY | 2023-07-11 08:46 | External Medical Summary | Summary of Care ---
Author Name Unknown Organization [facility] Address [address] [place] [address] Phone [phone] Care Team Providers Care Color Room Attendant Name Role Phone Unavailable Primary Care Provider Unavailabl e Reason for Visit * Reason Onset Date Comments Medication Management 06/28/2023 Order Xola ir Encounter Details Date Type Department Care Team (Late st Contact Info) Description 06/28/2023 Telephone Allergy/Immunology [facility] 200 [facility] [place] [address] Fredis Dave MD 200 [place] [address] Medication Management (Order Xolair) Allergies No known active allergiesdocumented as of this encounter (statuses as of 06/28/2023) Medications Medication Sig Dispensed Refills Start Date End Date Status Nortrel 1 (28) 1-35 MG-MCG Oral Tablet Take 1 [...] 300 mgIndications:Chronic urticaria,Idiopathic urticaria 300 mg SC [id number] 10/11/2022 Active documented as of this encounter (statuses as of 06/28/2023) Active Problems Problem Noted Date Diagnosed Date Chronic urticaria 08/14/2021 Overview: since 05/13/21 Seasonal allergic rhinitis due to pollen 022 documented as of this encounter (statuses as of 06/28/2023) Social History Tobacco Use Types Packs/Day Years [...] encounter Miscellaneous Notes * Telephone Encounter - Ada Valverde LPN - 06/28/2023 9:53 AM EST I called [facility] spoke to Breann This will deliver on 07/03/23 * Telephone Encounter - Ada Valverde LPN - 06/28/2023 7:46 AM EST ----- Message from Ada Valverde LPN sent at 06/14/2023 9:36 AM EST ----- Call [facility] and order Xolair. Last injection was 06/14/23. documented in this encounter Plan of Treatment Upcoming Encounters Date Type Department Care Team (Late st Contact Info) Description 09/19/2023 10:30 AM EDT Office Visit Allergy/Immunology [facility] [place] 200 [facility] [place] [address] Shayla Lainez PA-C 200 [facility] [place] [address] Health Maintenance Due Date Last Done Comments [...]
--- OUTSIDE RECORDS SUMMARY | 2023-07-11 08:46 | External Medical Summary | Summary of Care ---
Author Name Unknown Organization [facility] Address [address] [place] [address] Phone [phone] Care Team Providers Care Tent Assembler Name Role Phone Unavailable Primary Care Provider Unavailabl e Reason for Visit * Reason Onset Date Comments Medication Management 04/22/2023 Order Xola ir Encounter Details Date Type Department Care Team (Late st Contact Info) Description 04/22/2023 Telephone Allergy[facility]Immunology [facility] 200 [facility] [place] [address] Fredis Dave MD 200 [place] [address] Medication Management (Order Xolair) Allergies No known active allergiesdocumented as of this encounter (statuses as of 04/24/2023) Medications Medication Sig Dispensed Refills Start Date [...] 300 mgIndications:Chronic urticaria,Idiopathic urticaria 300 mg SC [id number] 10/11/2022 Active documented as of this encounter (statuses as of 04/24/2023) Active Problems Problem Noted Date Diagnosed Date Chronic urticaria 08/14/2021 Overview: since 05/13/21 Seasonal allergic rhinitis due to pollen 022 documented as of this encounter (statuses as of 04/24/2023) Social History Tobacco Use Types Packs/Day Years [...] Telephone Encounter - Ada Valverde LPN - 04/24/2023 10:17 AM EST I called and spoke to Belén. This will be delivered on Jeff 7. Pt is due on May 06 for her next dose. * Telephone Encounter - Ada Valverde LPN - 04/22/2023 7:25 AM EST ----- Message from Ada Valverde LPN sent at 04/08/2023 10:31 AM EST ----- Call [facility] and schedule shipment of Xolair. Last injection 04/08/23. Call documented in this encounter Plan of Treatment Upcoming Encounters Date Type Department Care Team (Late st Contact Info) Description 09/19/2023 10:30 AM EDT Office Visit Allergy/Immunology [facility] [place] 200 [facility] [place] [address] Fredis Dave MD 200 [place] [address] Health Maintenance Due Date Last Done Comments [...]
--- OUTSIDE RECORDS SUMMARY | 2023-07-11 08:46 | External Medical Summary | Summary of Care ---
Author Name Unknown Organization [facility] Address [address] [place] [address] Phone [phone] Care Team Providers Care Litigation Legal Assistant Name Role Phone Unavailable Primary Care Provider Unavailabl e Reason for Visit * Reason Comments Medication Administration Xolair Encounter Details Date Type Department Care Team (Late st Contact Info) Description 05/14/2023 3:45 PM EST Immunization/I njection Allergy/Immunology [facility] [address] [place] [address] [place], Nurse Allergy [facility] [address] [place] [address] Chronic urticaria* Allergies No known active allergiesdocumented as of this encounter (statuses as of 05/14/2023) Medications Medication Sig Dispensed Refills Start Date [...] 300 mgIndications:Chronic urticaria,Idiopathic urticaria 300 mg SC [id number] 10/11/2022 Active documented as of this encounter (statuses as of 05/14/2023) Active Problems Problem Noted Date Diagnosed Date Chronic urticaria 08/14/2021 Overview: since 05/13/21 Seasonal allergic rhinitis due to pollen 022 documented as of this encounter (statuses as of 05/14/2023) Social History Tobacco Use Types Packs/Day Years [...] Nursing Notes * Ada Valverde LPN - 05/14/2023 4:15 PM EST Pt with no clinical changes since injections. Injection sites with no wheal and no flare. Pt verbalized understanding to keep epi pen on his/her person for next 24 hours * Ada Valverde LPN - 05/14/2023 4:01 PM EST Pt arrived in clinic for Xolair injection. Pt has Epi pen on her person. Pt with recent hive flare ups . Pt aware to stay in clinic 30 minutes post injection. documented in this encounter Plan of Treatment Upcoming Encounters Date Type Department Care Team (Late st Contact Info) Description 09/19/2023 10:30 AM EDT Office Visit Allergy/Immunology [facility] [place] 200 [facility] [place] [address] Shayla Lainez PA-C 200 [facility] [place] [address] Health Maintenance Due Date Last Done Comments [...] (Xolair) inj 300 mg 300 mg, Subcutaneous, [id number], First dose on Verónica 10/11/22 at 1130, Until Discontinued, Inject 300mg ( 2 syringes) every 4 weeks subcutaneously Given 05/14/2023 4:01 PM EST 300 mg Arm Left Upper Given 04/08/2023 10:26 AM EST 300 mg A rm Left Upper Given 03/01/2023 9:17 AM EDT 300 mg Ar m Left Upper documented in this encounter
--- OUTSIDE RECORDS SUMMARY | 2023-07-11 08:46 | External Medical Summary | Summary of Care ---
Author Name Unknown Organization [facility] Address [address] [place] [address] Phone [phone] Care Team Providers Care Marketing Budget Analyst Name Role Phone Unavailable Primary Care Provider Unavailabl e Reason for Visit * Reason Onset Date Comments Medication Management 04/05/2023 Xolair rec eived in clinic Encounter Details Date Type Department Care Team (Late st Contact Info) Description 04/05/2023 Telephone Allergy[facility]Immunology [facility] [address] [place] [address] Fredis Dave MD [address] [place] [address] Medication Management (Xolair received in ... Allergies [...] 300 mgIndications:Chronic urticaria,Idiopathic urticaria 300 mg SC [id number] 10/11/2022 Active documented as of this encounter [...] Encounter - Ada Valverde LPN - 04/05/2023 8:25 AM EST [...] AM EDT Office Visit Allergy/Immunology [facility] Cas[facility] [place] [address] [place] [address] Fredis Dave MD [address] [place] [address] Health Maintenance Due Date Last Done Comments [...]
--- OUTSIDE RECORDS SUMMARY | 2023-07-11 08:46 | External Medical Summary | Summary of Care ---
Author Name Unknown Organization [facility] Address [address] [place] [address] Phone [phone] Care Team Providers Care Standards Analyst Name Role Phone Unavailable Primary Care Provider Unavailabl e Reason for Visit * Reason Onset Date Comments Medication Management 07/09/2023 Xolair rec eived in clinic Encounter Details Date Type Department Care Team (Late st Contact Info) Description 07/09/2023 Telephone Allergy/Immunology [facility] 200 [facility] [place] [address] Fredis Dave MD 200 [place] [address] Medication Management (Xolair received in ... Allergies No known active allergiesdocumented as of this encounter (statuses as of 07/09/2023) Medications Medication Sig Dispensed Refills Start Date [...] 300 mgIndications:Chronic urticaria,Idiopathic urticaria 300 mg SC [id number] 10/11/2022 Active documented as of this encounter (statuses as of 07/09/2023) Active Problems Problem Noted Date Diagnosed Date Chronic urticaria 08/14/2021 Overview: since 05/13/21 Seasonal allergic rhinitis due to pollen 022 documented as of this encounter (statuses as of 07/09/2023) Social History Tobacco Use Types Packs/Day Years [...] Telephone Encounter - Ada Valverde LPN - 07/09/2023 1:11 PM EST Xolair received in clinic. Pt is due for injection. My chart message sent to pt to schedule appointment. documented in this encounter Plan of Treatment Upcoming Encounters Date Type Department Care Team (Late st Contact Info) Description 09/19/2023 10:30 AM EDT Office Visit Allergy/Immunology [facility] [place] [address] [place] [address] Shayla Lainez PA-C 200 [facility] [place] [address] Health Maintenance Due Date Last Done Comments [...]
--- OUTSIDE RECORDS SUMMARY | 2023-07-11 08:46 | External Medical Summary | Summary of Care ---
Author Name Unknown Organization [facility] Address [address] [place] [address] Phone [phone] Care Team Providers Care Caul Puller Name Role Phone Unavailable Primary Care Provider Unavailabl e Reason for Visit * Reason Onset Date Comments Precert In Process 03/15/2023 Xolair [facility] Ca rol Encounter Details Date Type Department Care Team (Late st Contact Info) Description 03/15/2023 [facility] [address] [place] [address] Fredis Dave MD [address] [place] [address] Precert In Process (Amorelie Jaclyn ) Allergies No known active allergiesdocumented as of this encounter (statuses as of 03/18/2023) Medications Medication Sig Dispensed Refills Start Date [...] 300 mgIndications:Chronic urticaria,Idiopathic urticaria 300 mg SC [id number] 10/11/2022 Active documented as of this encounter (statuses as of 03/18/2023) Active Problems Problem Noted Date Diagnosed Date Chronic urticaria 08/14/2021 Overview: since 05/13/21 Seasonal allergic rhinitis due to pollen 022 documented as of this encounter (statuses as of 03/18/2023) Social History Tobacco Use Types Packs/Day Years [...] AM EDT Requested auth. MALLORY PRATT Lugo: [id number] - [place] help? Call us at Status Sent to [facility] [facility] Xolair 150MG/ML syringes Form [employer] [place] Form (2016 NCPDP) * Telephone Encounter - Ada Valverde, ANGELINA - 03/15/2023 9:49 AM EDT Images from the original note were not included. [facility] Allergy Medicine Pre-Cert Request Medication/Disease [...] Administered Medication - route pre-cert request to [id number] Medication(s) Tried/Failed/Contraindicated: See corresponding visit note(s) for [...] Nasal Suspension Administer into each nostril 1 [place] in the morning AND 1 [place] before bedtime. 16 g 5 Levocetirizine Dihydrochloride [...] hardwood with area rugs. 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 Fredis Dave MD Allergy and Immunology [facility] (This note was completed using the dictation [...] AM EDT Office Visit Allergy/Immunology Kim[facility] Casanova [place] [address] [place] [address] Fredis Dave MD [address] [place] [address] Health Maintenance Due Date Last Done Comments [...]
--- OUTSIDE RECORDS SUMMARY | 2023-07-11 08:46 | External Medical Summary | Summary of Care ---
Author Name Unknown Organization [facility] Address [address] [place] [address] Phone [phone] Care Team Providers Care Autocutter Name Role Phone Unavailable Primary Care Provider Unavailabl e Reason for Visit * Reason Onset Date Comments Appointment 05/02/2023 Xolair Encounter Details Date Type Department Care Team (Late st Contact Info) Description 05/02/2023 Telephone Allergy/Immunology [facility] Casanova [place] 200 [place] [address] Fredis Dave MD 200 [place] [address] Appointment (Xolair) Allergies No known active allergiesdocumented as of this encounter (statuses as of 05/02/2023) Medications Medication Sig Dispensed Refills Start Date [...] 300 mgIndications:Chronic urticaria,Idiopathic urticaria 300 mg SC [id number] 10/11/2022 Active documented as of this encounter (statuses as of 05/02/2023) Active Problems Problem Noted Date Diagnosed Date Chronic urticaria 08/14/2021 Overview: since 05/13/21 Seasonal allergic rhinitis due to pollen 022 documented as of this encounter (statuses as of 05/02/2023) Social History Tobacco Use Types Packs/Day Years [...] on file documented as of this encounter Plan of Treatment Upcoming Encounters Date Type Department Care Team (Late st Contact Info) Description 09/19/2023 10:30 AM EDT Office Visit Allergy/Immunology [facility] [place] [address] [place] [address] Fredis Dave MD [address] [place] [address] Health Maintenance Due Date Last Done Comments [...]
--- OUTSIDE RECORDS SUMMARY | 2023-07-11 08:46 | External Medical Summary | Summary of Care ---
Author Name Unknown Organization [facility] Address [address] [place] [address] Phone [phone] Care Team Providers Care Entertainment Musician Name Role Phone Unavailable Primary Care Provider Unavailabl e Reason for Visit * Reason Onset Date Comments Appointment 05/02/2023 Xolair Encounter Details Date Type Department Care Team (Late st Contact Info) Description 05/02/2023 Telephone Allergy/Immunology [facility] Casanova [place] 200 [facility] [address] Fredis Dave MD 200 [facility] [place] [address] Appointment (Xolair) Allergies No known active allergiesdocumented as of this encounter (statuses as of 05/06/2023) Medications Medication Sig Dispensed Refills Start Date [...] 300 mgIndications:Chronic urticaria,Idiopathic urticaria 300 mg SC [id number] 10/11/2022 Active documented as of this encounter (statuses as of 05/06/2023) Active Problems Problem Noted Date Diagnosed Date Chronic urticaria 08/14/2021 Overview: since 05/13/21 Seasonal allergic rhinitis due to pollen 022 documented as of this encounter (statuses as of 05/06/2023) Social History Tobacco Use Types Packs/Day Years [...] encounter Miscellaneous Notes * Telephone Encounter - Daniella Shah LPN - 05/06/2023 8:13 AM EST LVM for pt to call and sched. documented in this encounter Plan of Treatment Upcoming Encounters Date Type Department Care Team (Late st Contact Info) Description 09/19/2023 10:30 AM EDT Office Visit Allergy/Immunology [facility] [address] [place] [address] Shayla Lainez PA-C [address] [place] [address] Health Maintenance Due Date Last Done Comments [...]
--- OUTSIDE RECORDS SUMMARY | 2023-07-11 08:46 | External Medical Summary | Summary of Care ---
Author Name Unknown Organization [facility] Address [address] [place] [address] Phone [phone] Care Team Providers Care Credentialing Specialist Name Role Phone Unavailable Primary Care Provider Unavailabl e Reason for Visit * Reason Onset Date Comments Medication Management 07/09/2023 Xolair rec eived in clinic Encounter Details Date Type Department Care Team (Late st Contact Info) Description 07/09/2023 Telephone Allergy/Immunology [facility] 200 [facility] [place] [address] Fredis Dave MD 200 [place] [address] Medication Management (Xolair received in ... Allergies [...] 300 mgIndications:Chronic urticaria,Idiopathic urticaria 300 mg SC [id number] 10/11/2022 Active documented as of this encounter [...] AM EDT Office Visit Allergy/Immunology Kim[facility] Casanova [place] [address] [place] [address] Shayla Lainez PA-C [address] [facility] [place] [address] Health Maintenance Due Date Last Done Comments [...]
--- OUTSIDE RECORDS SUMMARY | 2023-07-11 08:46 | External Medical Summary | Summary of Care ---
Author Name Unknown Organization [facility] Address [address] [place] [address] Phone [phone] Care Team Providers Care Tribunal Member Name Role Phone Unavailable Primary Care Provider Unavailabl e Reason for Visit * Reason Onset Date Comments Precert Approved 03/15/2023 Xolair Encounter Details Date Type Department Care Team (Late st Contact Info) Description 03/15/2023 Telephone Allergy/Immunology [facility] 200 [facility] [place] [address] Fredis Dave MD 200 [place] [address] Precert Approved (Xolair ) Allergies No known active allergiesdocumented as of this encounter (statuses as of 03/20/2023) Medications Medication Sig Dispensed Refills Start Date [...] 300 mgIndications:Chronic urticaria,Idiopathic urticaria 300 mg SC [id number] 10/11/2022 Active documented as of this encounter (statuses as of 03/20/2023) Active Problems Problem Noted Date Diagnosed Date Chronic urticaria 08/14/2021 Overview: since 05/13/21 Seasonal allergic rhinitis due to pollen 022 documented as of this encounter (statuses as of 03/20/2023) Social History Tobacco Use Types Packs/Day Years [...] * Telephone Encounter - LILLIAM Winter - 03/20/2023 6:21 AM EDT See referral message. * Telephone Encounter - LILLIAM Winter - 03/15/2023 10:24 AM EDT Requested authAde PRATT Lugo: [id number] - [place] help? Call us at Status Sent to [employer] [facility] Xolair 150MG/ML syringes Form [employer] Electronic [place] Form (2016 [facility]) * Telephone Encounter - Ada Valverde LPN - 03/15/2023 9:49 AM EDT Images from the original note were not included. [facility] Allergy Medicine Pre-Cert Request Medication/Disease State Information: [...] Administered Medication - route pre-cert request to [id number] Medication(s) Tried/Failed/Contraindicated: See corresponding visit note(s) for [...] morning and 2 Sprays before bedtime. Nortrel 135 (28) 1-35 MG-MCG Oral Tablet Take 1 Tablet by mouth in the morning. hydrOXYzine HCl 25 MG Oral Tablet Use 1 tablet every 4-6 hours for worsening itching, hives or swelling episodes 35 Tablet 2 Fluticasone Propionate 50 MCG/ACT Nasal Suspension Administer into each nostril 1 [place] in the morning AND 1 [place] before bedtime. 16 g 5 Levocetirizine Dihydrochloride [...] hardwood with area rugs. 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 Fredis Dave MD Allergy and Immunology [facility] (This note was completed using the [...] AM EDT Office Visit Allergy/Immunology [facility]mie Casanova [place] 200 [place] [address] Fredis Dave MD 200 [facility] [place] [address] Health Maintenance Due Date Last Done Comments [...]
--- OUTSIDE RECORDS SUMMARY | 2023-07-11 08:46 | External Medical Summary | Summary of Care ---
Author Name Unknown Organization [facility] Address [address] [place] [address] Phone [phone] Care Team Providers Care Pv Installer Tech Name Role Phone Unavailable Primary Care Provider Unavailabl e Reason for Visit * Reason Onset Date Comments Medication Management 06/10/2023 Xolair rec eived in clinic Encounter Details Date Type Department Care Team (Late st Contact Info) Description 06/10/2023 Telephone Allergy/Immunology [facility] [address] [place] [address] Fredis Dave MD [address] [place] [address] Medication Management (Xolair received in ... Allergies No known active allergiesdocumented as of this encounter (statuses as of 06/10/2023) Medications Medication Sig Dispensed Refills Start Date [...] 300 mgIndications:Chronic urticaria,Idiopathic urticaria 300 mg SC [id number] 10/11/2022 Active documented as of this encounter (statuses as of 06/10/2023) Active Problems Problem Noted Date Diagnosed Date Chronic urticaria 08/14/2021 Overview: since 05/13/21 Seasonal allergic rhinitis due to pollen 022 documented as of this encounter (statuses as of 06/10/2023) Social History Tobacco Use Types Packs/Day Years [...] Telephone Encounter - Ada Valverde LPN - 06/10/2023 12:44 PM EST Xolair received in clinic last injection 05/14/23. Spoke to pt have her scheduled for 06/14/23 @ 0900. documented in this encounter Plan of Treatment Upcoming Encounters Date Type Department Care Team (Late st Contact Info) Description 06/14/2023 9:00 AM EST Nurse Only Allergy/Immunology [employer] [address] [place] [address] [place] Nurse Allergy [facility] [address] [place] [address] 09/19/2023 10:30 AM EDT Office Visit Allergy/Immunology [facility] Casanova [place] [address] [place] [address] Shayla Lainez PA-C [address] [place] [address] Health Maintenance Due Date Last Done Comments [...]
--- OUTSIDE RECORDS SUMMARY | 2023-07-11 08:46 | External Medical Summary | Summary of Care ---
Author Name Unknown Organization [facility] Address [address] [place] [address] Phone [phone] Care Team Providers Care Automatic Grinding Machine Operator Name Role Phone Unavailable Primary Care Provider Unavailabl e Reason for Visit * Reason Onset Date Comments Medication Management 05/29/2023 Order Xola ir Encounter Details Date Type Department Care Team (Late st Contact Info) Description 05/29/2023 Telephone Allergy/Immunology [facility] 200 [facility] [place] [address] Fredis Dave MD 200 [place] [address] Medication Management (Order Xolair) Allergies No known [...] 300 mgIndications:Chronic urticaria,Idiopathic urticaria 300 mg SC [id number] 10/11/2022 Active documented as of this encounter [...] Telephone Encounter - Ada Valverde LPN - 05/29/2023 11:55 AM EST I called [facility] spoke to Ani this will be delivered on 06/05/23. * Telephone Encounter - Ada Valverde LPN - 05/29/2023 7:44 AM EST ----- Message from Ada Valverde LPN sent at 05/14/2023 4:03 PM EST ----- Call [facility] at to have next Xolair shipped. Last injection 05/14/23 documented in this encounter Plan of Treatment Upcoming Encounters Date Type Department Care Team (Late st Contact Info) Description 09/19/2023 10:30 AM EDT Office Visit Allergy/Immunology Kimmie Casanova [place] 200 [facility] [place] [address] Shayla Lainez PA-C 200 [facility] [place] [address] Health Maintenance Due Date Last Done Comments [...]
--- OUTSIDE RECORDS SUMMARY | 2023-07-11 08:46 | External Medical Summary | Summary of Care ---
Author Name Unknown Organization [facility] Address [address] [place] [address] Phone [phone] Care Team Providers Care Supervisor Cutting Department Name Role Phone Unavailable Primary Care Provider Unavailabl e Reason for Visit * Reason Comments Allergy Return Encounter Details Date Type Department Care Team Description 03/15/2023 Office Visit Allergy/Immunology Kimmie Casanova [place] [address] [facility] [place] [address] Fredis Dave MD [address] [facility] [place] [address] Chronic urticaria*; Idiopathic urticaria; Seasonal allergic rhinitis due to pollen; Mixed rhinitis Allergies No known active allergiesdocumented as of this encounter (statuses as of 03/15/2023) Medications Medication Sig Dispensed Refills Start Date [...] 300 mgIndications:Chronic urticaria,Idiopathic urticaria 300 mg SC [id number] 10/11/2022 Active documented as of this encounter (statuses as of 03/15/2023) Active Problems Problem Noted Date Chronic urticaria 08/14/2021 Overview: since 05/13/21 Seasonal allergic rhinitis due to pollen 08/14/2021 documented as of this encounter (statuses as of 03/15/2023) Social History Tobacco Use Types Packs/Day Years Used Date Smoking Tobacco: Never Smokeless Tobacco: Never Comments:No passive smoke ex possure Alcohol Use Standard Drinks/Week Comments Yes 0 (1 standard drink = 0.6 oz pur e alcohol) Occasionally Sex Assigned at Date Recorded Not on file Job Start Date Occupation Industry Not on file Not on file Not on file documented as of this encounter Last Filed Vital Signs Vital Sign Reading Time Taken Comments Blood Pressure 118/82 03/15/2023 10:22 AM EDT Pulse 87 03/15/2023 10:22 AM EDT Temperature 36.7 C (98.1 F) 03/15/2023 10:22 AM E DT Respiratory Rate 16 03/15/2023 10:22 AM EDT Oxygen Saturation - - Inhaled Oxygen Concentration - - Weight 71.8 kg (158 lb 6.4 oz) 03/15/2023 10:22 AM EDT Height - - Body Mass Index 27.04 04/03/2022 2:34 PM EST documented in this encounter Patient Instructions * Patient Instructions* Fredis Dave MD - 03/15/2023 10:44 AM EDT Pollen Avoidance Measures: Keep windows, doors closed; use air conditioning; dry clothes in vented dryer, not outside on clothesline; shower/bathe and change clothes right after outdoor activity; avoid outdoor activity during high pollen counts; use HEPA type air filtration system. documented in this encounter Progress Notes * Fredis Dave MD - 03/15/2023 10:44 AM EDT SUBJECTIVE: Mallory is here today for follow-up of her chronic urticaria and chronic allergic rhinitis. Since ourlast visit approximately 6 months ago, she has been doing well. As you may recall, she started Xolair injections shortly after our last visit. She states that after her 2nd injection, she has not hadany hives, itch, swelling, nor rash. She was very pleased with how the Xolair injections have been helping. She does continue to take her oral medications which include Xyzal 5 mg twice daily, Idxmqy50 mg twice daily, and Singulair 10 mg daily. He has not needed her hydroxyzine. She did try to stop all the medications at 1 point since she was doing well but she had semblance of a few urticarial lesions returned after 2-3 days. Hence she restarted all of her medications. She has not had any local reactions nor systemic reactions from her injections. She does get her injections within our office due to stress, anxiety, and the sensation of passing out. 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 She does havean EpiPen that is up-to-date. The patient also does have occasional seasonal allergies primarily in the spring and the summer. For this, she does continue on Astelin 2 sprays each nostril twice daily and this controls her symptoms relatively well. She reports no ear infections nor sinus infections since last visit. The patient has no history of asthma and denies any shortness of breath, wheezing, nor chronic cough. She reports no nocturnal respiratory symptoms. There have been no ER visits nor any urgent care visits secondary to pulmonary symptoms. Patient Active Problem List Diagnosis Code Chronic urticaria L50.8 Seasonal allergic rhinitis due to pollen J30.1 Past Surgical History: Procedure Laterality Date REMOVAL OF ADENOIDS, UNDER AGE 10 Removal for obstructive airway symptoms around age 5 Current Outpatient Medications Medication Sig Dispense Refill Nortrel (28) 1-35 MG-MCG Oral Tablet Take 1 Tablet by mouth in the morning. hydrOXYzine HCl 25 MG Oral Tablet Use 1 tablet every 4-6 hours for worsening itching, hives or swelling episodes 35 Tablet 2 Montelukast Sodium 10 MG Oral Tablet (Singulair) Take 1 Tablet by mouth every morning. 90 Tablet 3 Famotidine 20 MG Oral Tablet (Pepcid) Take 1 Tablet by mouth in the morning and 1 Tablet before bedtime. 180 Tablet 3 Azelastine HCl 0.1 % Nasal Solution (Astelin) Administer 2 Sprays into nostril in the morning and 2Sprays before bedtime. 90 mL 3 Xolair 150 MG/ML Subcutaneous Solution Prefilled Syringe (Omalizumab) Inject 300 mg under the skin every 4 weeks. 2 mL 11 Levocetirizine Dihydrochloride 5 MG Oral Tablet (Xyzal Allergy 24HR) Take 1 Tablet by mouth every evening. 90 Tablet 3 buPROPion HCl ER (XL) 300 MG Oral Tablet Extended Release 24 Hour (Wellbutrin XL) TAKE 1 TABLET BY MOUTH EVERY DAY IN THE MORNING busPIRone HCl 5 MG Oral Tablet (Buspar) Take 1 Tablet by mouth in the morning and 1 Tablet before bedtime. EPINEPHrine 0.3 MG/0.3ML Injection Solution Auto-injector (Autoinjector) For a severe reaction: Inject in outer thigh following instructions on package and go to the Emergency room. 2 Each 2 Current Facility-Administered Medications Medication Dose Route Frequency Provider Last Rate Last Admin Omalizumab (Xolair) inj 300 mg 300 mg Subcutaneous Q4 Weeks Fredis Dave MD 300 mg at 03/01/23 0917 Allergies as of 03/15/2023 (No Known Allergies) Family History Problem Relation [...] with area rugs. 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 When she is at her parents she is exposed to 2 dogs and a cat and 1 cat at her boyfriend's. BP 118/82 (BP Site: Left Arm, BP Position: Sitting) | Pulse 87 | Temp 36.7 C (98.1 F) (Tympanic) | Resp 16 | Wt 71.8 kg (158 lb 6.4 oz) | BMI 27.04 kg/m | BSA 1.8 m PHYSICAL EXAM: No Acute Distress: Conjunctiva: [...] IgE determinations from 05/14/16 physicians laboratory services [facility] revealed all negative results to pollens, molds, dust mites and animal danders tested. ASSESSMENT: ICD-10-CM 1. Chronic urticaria L50.8 2. Idiopathic urticaria L50.1 3. Seasonal allergic rhinitis due to pollen J30.1 4. 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 Full workup to assess for any underlying disorders that may contribute to her urticaria has been unremarkable. Chronic idiopathic urticaria is thought to be an autoimmune disorder that targets the IgE receptor which then leads to mast cell activation and histamine release, leading to urticaria and occasionally angioedema. Fortunately, the patient has been doing extremely well after initiation of Xolair injections, whichis an anti IgE biologic injection. For now we do recommend that she continue with her Xolair injections 300 mg every 4 weeks as she has been doing. She does have them done here in our office due to stress, anxiety, and the sensation of possibly passing out due to her fear of needles. She does have an EpiPen to be used for any signs or symptoms of anaphylaxis. For now she will continue on Xyzal 5 mg twice daily and Pepcid 20 mg twice daily. With her improvement, we will discontinue her Singulair. If she continues to do well, she was instructed to decrease her Pepcid to 20 mg once daily starting in 1 month. No further changes are warranted at the present moment. For the patient's chronic allergic rhinitis, she will continue on Astelin 2 sprays each nostril twice daily as she feels that this medication works best for her. She will continue with pollen avoidance measures as she is been doing. Thank you very much for allowing myself to participate in the care of your patient. Please do not hesitate to contact our office should you have any questions or concerns. Fredis Dave MD Allergy and Immunology [facility] (This note was completed using the dictation program Fluency Direct. As such, there may be misspellings, word substitutions, or other variations that should not change the essence of the clinical content of this encounter note.If there is need for further clarification, please direct questions to the provider listed above.) documented in this encounter Nursing Notes * Daniella Shah LPN - 03/15/2023 10:18 AM EDT The pt has been properly identified by confirmation of name and date of . Pt here for return visit. documented in this encounter Plan of Treatment Upcoming Encounters Date Type Specialty Care Team Description 09/19/2023 Office Visit Allergy & Immunology Fredis Dave MD [address] [place] [address] [place] [address] Health Maintenance Due Date Last Done Comments [...] Diagnosis Chronic urticaria- Primary Other specified urticaria Idiopathic urticaria Seasonal allergic rhinitis due to pollen Mixed rhinitis Chronic rhinitis documented in this encounter"
--- OUTSIDE RECORDS SUMMARY | 2023-07-11 08:47 | External Medical Summary | Summary of Care ---
Author Name Unknown Organization [facility] Address [address] [place] [address] Phone [phone] Care Team Providers Care Travel Nurse Name Role Phone Unavailable Primary Care Provider Unavailabl e Reason for Visit * Reason Onset Date Comments Appointment 01/09/2023 Xolair Received in Clinic Encounter Details Date Type Department Care Team Description 01/09/2023 Telephone Allergy/Immunology Kimmie Casanova [place] [address] [place] [address] Fredis Dave MD 200 [facility] [place] [address] Appointment (Xolair Received in Clinic) Allergies No known active allergiesdocumented as of this encounter (statuses as of 01/22/2023) Medications Medication Sig Dispensed Refills Start Date [...] every evening. 90 Tablet 3 09/24/2022 Active Hospital, Clinic, or Other Facility Administered Medication Ordered Dose Route Frequency Start Date End Date Status Omalizumab (Xolair) inj 300 mgIndications:Chronic urticaria,Idiopathic urticaria 300 mg SC [id number] 10/11/2022 Active documented as of this encounter (statuses as of 01/22/2023) Active Problems Problem Noted Date Chronic urticaria 08/14/2021 Overview: since 05/13/21 Seasonal allergic rhinitis due to pollen 08/14/2021 documented as of this encounter (statuses as of 01/22/2023) Social History Tobacco Use Types Packs/Day Years [...] Telephone Encounter - Ada Valverde LPN - 01/22/2023 11:45 AM EDT Spoke to pt and scheduled appointment. documented in this encounter Plan of Treatment Upcoming Encounters Date Type Specialty Care Team Description 01/29/2023 Nurse Only Allergy & Immunology Nurse Jocelyne Allergy [facility] [address] [place] [address] 03/15/2023 Office Visit Allergy & Immunology Fredis Dave MD [address] [place] [address] [place] [address] Health Maintenance Due Date Last Done Comments Hepatitis B (1 of 3 - 3-dose series) 1998 COVID-19 Vaccine (#1) 1998 GARDASIL-HPV IMMUNIZATION SE SABINA (1 - 2-dose series) 2009 Depression Screening, Annual for Pts 12 and Over 2010 Gonorrhea / Chlamydia Screen 2013 HIV Screening 2013 Hepatitis C Screening 2016 DTaP,Tdap,and Td Vaccines (1 - Tdap) 2017 Pap Smear 2019 Influenza Vaccine (FLU shot) (#1) 2023 MENINGOCOCCAL (MENACTRA/MENVEO) Aged Out No longer eligible [...]
--- OUTSIDE RECORDS SUMMARY | 2023-07-11 08:47 | External Medical Summary | Summary of Care ---
Author Name Unknown Organization [facility] Address [address] [place] [address] Phone [phone] Care Team Providers Care Health Education Director Name Role Phone Unavailable Primary Care Provider Unavailabl e Reason for Visit * Reason Onset Date Comments Medication Management 03/15/2023 Order Xola ir Encounter Details Date Type Department Care Team Description 03/15/2023 Telephone Allergy/Immunology Kimmie Casanova [place] [address] [place] [address] Fredis Dave MD 200 [facility] [place] [address] Medication Management (Order Xolair) Allergies No known [...] 300 mgIndications:Chronic urticaria,Idiopathic urticaria 300 mg SC [id number] 10/11/2022 Active documented as of this encounter [...] Encounter - Ada Valverde LPN - 03/15/2023 9:47 AM EDT Spoke to Kait at [facility] this will be here 03/20/23. * Telephone Encounter - Ada Valverde LPN - 03/15/2023 7:27 AM EDT ----- Message from Ada Valverde LPN sent at 03/01/2023 10:56 AM EDT ----- Call [facility] and order Xolair. Last injection was 03/01/23. Call to set up delivery. documented in this encounter Plan of Treatment Upcoming Encounters Date Type Specialty Care Team Description 03/15/2023 Office Visit Allergy & Immunology Fredis Dave MD [address] [place] [address] Health Maintenance Due Date Last Done Comments [...]
--- OUTSIDE RECORDS SUMMARY | 2023-07-11 08:47 | External Medical Summary | Summary of Care ---
Author Name Unknown Organization [facility] Address [address] [place] [address] Phone [phone] Care Team Providers Care Planning Manager Name Role Phone Unavailable Primary Care Provider Unavailabl e Reason for Visit * Reason Comments Medication Administration Xolair * Precert (Within 10 days (routine)) - Authorized Specialty Diagnoses / Procedures Referred By Dayami matson Referred To Contact Allergy & Immunology Diagnoses Idiopathic urticaria Procedures INJECTION, OMALIZUMAB, 5 MG Fredis Dave MD [address] [place] [address] Allergy/Immunology [facility] [address] [facility] [address] Referral ID Status Reason Start Date Expiration Date V isits Requested Visits Authorized [id number] Authorized Precert 09/10/2022 03/12/2023 999 [id number] Encounter Details Date Type Department Care Team Description 01/29/2023 Nurse Only Allergy/Immunology [facility] Jocelyne [place] [address] [place] [address] Jocelyne Nurse Allergy [facility] [address] [facility] [address] Medication Administration (Xolair) Allergies No known active allergiesdocumented as of this encounter (statuses as of 01/29/2023) Medications Medication Sig Dispensed Refills Start Date [...] 300 mgIndications:Chronic urticaria,Idiopathic urticaria 300 mg SC [id number] 10/11/2022 Active documented as of this encounter (statuses as of 01/29/2023) Active Problems Problem Noted Date Chronic urticaria 08/14/2021 Overview: since 05/13/21 Seasonal allergic rhinitis due to pollen 08/14/2021 documented as of this encounter (statuses as of 01/29/2023) Social History Tobacco Use Types Packs/Day Years [...] Nursing Notes * Ada Valverde LPN - 01/29/2023 3:45 PM EDT Pt with no clinical changes since injections. Injection sites with no wheal and no flare. Pt verbalized understanding to keep epi pen on his/her person for next 24 hours * Ada Valverde LPN - 01/29/2023 3:20 PM EDT Pt arrived in clinic for Xolair injection. Pt has Epi pen on her person. Pt with no recent hive flare ups or other health issues today. Pt aware to stay in clinic 30 minutes post injection. documented in this encounter Plan of Treatment Upcoming Encounters Date Type Specialty Care Team Description 03/15/2023 Office Visit Allergy & Immunology Fredis Dave MD [address] [place] [address] Health Maintenance Due Date Last Done Comments [...] (Xolair) inj 300 mg 300 mg, Subcutaneous, [id number], First dose on Verónica 10/11/22 at 1130, Until Discontinued, Inject 300mg ( 2 syringes) every 4 weeks subcutaneously Given 01/29/2023 3:19 PM EDT 300 mg Arm Left Upper Given 12/20/2022 10:36 AM EDT 300 mg A rm Right Upper Given 11/19/2022 11:14 AM EDT 300 mg A rm Right Upper documented in this encounter
--- OUTSIDE RECORDS SUMMARY | 2023-07-11 08:47 | External Medical Summary | Summary of Care ---
Author Name Unknown Organization [facility] Address [address] [place] [address] Phone [phone] Care Team Providers Care Patient Safety Tech Name Role Phone Unavailable Primary Care Provider Unavailabl e Reason for Visit * Reason Comments Medication Administration Xolair * Precert (Within 10 days (routine)) - Authorized Specialty Diagnoses / Procedures Referred By Dayami matson Referred To Contact Allergy & Immunology Diagnoses Idiopathic urticaria Procedures INJECTION, OMALIZUMAB, 5 MG Fredis Dave MD [address] [place] [address] Allergy/Immunology [facility] 200 [facility] [place] [address] Referral ID Status Reason Start Date Expiration Date V isits Requested Visits Authorized [id number] Authorized Precert 09/10/2022 03/12/2023 999 [id number] Encounter Details Date Type Department Care Team Description 03/01/2023 Immunization/Inj ection Allergy/Immunology [facility] [place] [address] [place] [address] Nurse Jocelyne Allergy [facility] 200 [facility] [place] [address] Chronic urticaria* Allergies No known active allergiesdocumented as of this encounter (statuses as of 03/01/2023) Medications Medication Sig Dispensed Refills Start Date [...] 300 mgIndications:Chronic urticaria,Idiopathic urticaria 300 mg SC [id number] 10/11/2022 Active documented as of this encounter (statuses as of 03/01/2023) Active Problems Problem Noted Date Chronic urticaria 08/14/2021 Overview: since 05/13/21 Seasonal allergic rhinitis due to pollen 08/14/2021 documented as of this encounter (statuses as of 03/01/2023) Social History Tobacco Use Types Packs/Day Years [...] Nursing Notes * Ada Valverde LPN - 03/01/2023 10:38 AM EDT Pt arrived in clinic for Xolair injection. Pt has Epi pen on her person. Pt with no recent hive flare ups or other health issues today. Pt aware to stay in clinic 30 minutes post injection. Pt with no clinical changes since injections. Injection sites with no wheal and no flare. Pt verbalized understanding to keep epi pen on his/her person for next 24 hours documented in this encounter Plan of Treatment Upcoming Encounters Date Type Specialty Care Team Description 03/15/2023 Office Visit Allergy & Immunology Fredis Dave MD [address] [place] [address], [place] [address] Health Maintenance Due Date Last Done Comments [...] (Xolair) inj 300 mg 300 mg, Subcutaneous, [id number], First dose on Verónica 10/11/22 at 1130, Until Discontinued, Inject 300mg ( 2 syringes) every 4 weeks subcutaneously Given 03/01/2023 9:17 AM EDT 300 mg Arm Left Upper Given 01/29/2023 3:19 PM EDT 300 mg Ar m Left Upper Given 12/20/2022 10:36 AM EDT 300 mg A rm Right Upper documented in this encounter
--- OUTSIDE RECORDS SUMMARY | 2023-07-11 08:47 | External Medical Summary | Summary of Care ---
Author Name Unknown Organization [facility] Address [address] [place] [address] Phone [phone] Care Team Providers Care Crusher Feeder Name Role Phone Unavailable Primary Care Provider Unavailabl e Reason for Visit * Reason Onset Date Comments Precert In Process 03/15/2023 Xolair [facility] Ca rol Encounter Details Date Type Department Care Team Description 03/15/2023 Telephone Allergy/Immunology Kimmie Casanova [place] [address] [place] [address] Fredis Dave MD [address] [place] [address] Precert In Process ([employer] Jaclyn ) Allergies No known active allergiesdocumented [...] 300 mgIndications:Chronic urticaria,Idiopathic urticaria 300 mg SC [id number] 10/11/2022 Active documented as of this encounter [...] AM EDT Requested auth. MALLORY PRATT Lugo: [id number] - [place] help? Call us at Status Sent to [facility] Xolair 150MG/ML syringes Form [facility] Electronic [place] Form (2016 NCPDP) * Telephone Encounter - Ada Valverde, ANGELINA - 03/15/2023 9:49 AM EDT Images from the original note were not included. [facility] Allergy Medicine Pre-Cert Request Medication/Disease State [...] Administered Medication - route pre-cert request to [id number] Medication(s) Tried/Failed/Contraindicated: See corresponding visit note(s) for [...] Nasal Suspension Administer into each nostril 1 Bradford in the morning AND 1 Bradford before bedtime. 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 When she is at her parents she is exposed to 2 dogs and a cat and 1 cat at her boyfriend's. BP 106/74 (BP Site: Right Arm, BP Position: Sitting) | Pulse 82 | Resp 16 | Wt 72.3 kg (159 lb 4.8oz) | BMI 27.20 kg/m | BSA 1.81 [...] IgE determinations from 05/14/16 physicians laboratory services [facility] revealed all negative results [...] concerns. Fredis Dave MD Allergy and Immunology [facility] [place] (This note was completed using the dictation program Fluency Direct. As such, there may be misspellings, word substitutions, or other variations that should not change the essence of the clinical content of this encounter note.If there is need for further clarification, please direct questions to the provider listed above.) [id number] documented in this encounter Plan of Treatment Health Maintenance Due Date Last Done Comments [...]
--- OUTSIDE RECORDS SUMMARY | 2023-07-11 08:47 | External Medical Summary | Summary of Care ---
Author Name Unknown Organization [facility] Address [address] [place] [address] Phone [phone] Care Team Providers Care Sales Forecast Analyst Name Role Phone Unavailable Primary Care Provider Unavailabl e Reason for Visit * Reason Onset Date Comments Medication Management 02/12/2023 Order Xola ir Encounter Details Date Type Department Care Team Description 02/12/2023 Telephone Allergy/Immunology Kimmie Casanova [place] [address] [place] [address] Fredis Dave MD 200 [facility] [place] [address] Medication Management (Order Xolair) Allergies No known active allergiesdocumented as of this encounter (statuses as of 02/21/2023) Medications Medication Sig Dispensed Refills Start Date End Date Status Nortrel () 1-35 MG-MCG Oral Tablet Take 1 Tablet [...] 300 mgIndications:Chronic urticaria,Idiopathic urticaria 300 mg SC [id number] 10/11/2022 Active documented as of this encounter (statuses as of 02/21/2023) Active Problems Problem Noted Date Chronic urticaria 08/14/2021 Overview: since 05/13/21 Seasonal allergic rhinitis due to pollen 08/14/2021 documented as of this encounter (statuses as of 02/21/2023) Social History Tobacco Use Types Packs/Day Years [...] Telephone Encounter - Ada Valverde LPN - 02/13/2023 11:19 AM EDT Attempted to order medication and spoke to Trev and she states that the pt has to call and give me permission to order her Xolair. Left message on pt's voicemail to do so. * Telephone Encounter - Ada Valverde LPN - 02/12/2023 7:15 AM EDT ----- Message from Ada Valverde LPN sent at 01/30/2023 11:06 AM EDT ----- Call [facility] and order pt's Xolair last injection 01/29/23 documented in this encounter Plan of Treatment Upcoming Encounters Date Type Specialty Care Team Description 03/15/2023 Office Visit Allergy & Immunology Fredis Dave MD [address] [place] [address] Health Maintenance Due Date Last Done Comments [...]
--- OUTSIDE RECORDS SUMMARY | 2023-07-11 08:47 | External Medical Summary | Summary of Care ---
Author Name Unknown Organization [facility] Address [address] [place] [address] Phone [phone] Care Team Providers Care Transporter Driver Name Role Phone Unavailable Primary Care Provider Unavailabl e Reason for Visit * Reason Onset Date Comments Medication Management 02/21/2023 Xolair rec eived in clinic Encounter Details Date Type Department Care Team Description 02/21/2023 Telephone Allergy/Immunology Kimmie Casanova [place] [address] [facility] [place] [address] Fredis Dave MD [address] [facility] [place] [address] Medication Management (Xolair received in ... Allergies No known active allergiesdocumented as of this encounter (statuses as of 02/26/2023) Medications Medication Sig Dispensed Refills Start Date [...] 300 mgIndications:Chronic urticaria,Idiopathic urticaria 300 mg SC [id number] 10/11/2022 Active documented as of this encounter (statuses as of 02/26/2023) Active Problems Problem Noted Date Chronic urticaria 08/14/2021 Overview: since 05/13/21 Seasonal allergic rhinitis due to pollen 08/14/2021 documented as of this encounter (statuses as of 02/26/2023) Social History Tobacco Use Types Packs/Day Years [...] Telephone Encounter - Ada Valverde LPN - 02/26/2023 12:02 PM EDT Sent pt a my chart message as well. * Telephone Encounter - Ada Valverde LPN - 02/21/2023 11:08 AM EDT Xolair received in clinic pt last injection was 01/29/23 Pt is due 02/26/23. Pt will need to bring Epipen and plan to stay after injection. Left message on pt's voicemail to schedule an appointment. documented in this encounter Plan of Treatment Upcoming Encounters Date Type Specialty Care Team Description 03/01/2023 Immunization/Injecti on Allergy & Immunology Nurse [facility] [address] [place] [address] 03/15/2023 Office Visit Allergy & Immunology Fredis Dave MD [address] [place], [place] [address] Health Maintenance Due Date Last Done Comments [...]
[2023-07-11] MEDS: MONTELUKAST SODIUM 10 MG TABLET PO SCH (09:41)
[2023-07-11] MEDS: lamoTRIgine 100 MG TAB PO SCH (09:42)
[2023-07-11] MEDS: FAMOTIDINE 20 MG TAB PO SCH (09:43)
[2023-07-11] MEDS: CETIRIZINE HCL 10 MG TABLET PO SCH (09:43)
[2023-07-11] MEDS: VENLAFAXINE HCL XR 75 MG CAPXR PO SCH (10:28)
--- NOTE | 2023-07-11 13:02 | History & Physical ---
Date of Service July 11, 2023 Impression / Recommendations Impression 23 yo female with hx of depression, some non specific ED symptoms and SIB hx, presented to crisis s/p hydroxyzine OD (225 mg). Overall, I spent a total of 58 minutes with this case, including review of chart, review of records, direct evaluation of the patient, counseling the patient, ordering medication, coordination with nursing, risk assessment, and documentation. (1) Depression with suicidal ideation: Plan The patient was admitted to the [facility] ([facility] unit) on q15 min checks (behavioral with suicide precautions) for safety. The patient will participate in group, recreational, and milieu therapies and will be offered additional individual and family sessions as clinically appropriate. The patient would like to discontinue Lamictal and Pristiq. Reviewed that Pristiq is non-formulary and generally tapering SNRIs is advised due to risks of discontinuation syndrome. Patient agreed to a substitute Effexor XR at lower equivalent dose. 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 She stated she is struggling in her program and has been told to drop out. She stated her academic program specialist is "not very good" and she is "not progressing in my research." Mallory stated she has already changed advisors and transferring "really isn't an option at this point." Mallory stated she is "not liked in my program." She stated she lives alone and has no concern for her safety at home. She denies access to firearms. Mallory stated he is having thoughts of suicide. When asked if she had a plan of suicide she stated "well I did take those pills." Patient then stated she took the pills "to relax." Mallory denies HI or aggression. Superficial cuts were observed on left outer forearm. Mallory admit she cut her self intentionally. Mallory denies hallucinations, paranoia, or delusion based thinking. She denies any medical issues. She stated she occasionally drinks alcohol and rarely uses marijuana. She stated she is from [place]. Physician discussed inpatient treatment recommendation and benefits of inpatient treatment. Mallory stated she has a therapist though [facility]. She has a new psychiatrist and stated her medication management was through [facility] "but they told me medication won't help because my personality is the problem." Today the patient confirms that she is not happy with her graduate program and miscommunication with various professors/advisors has been a constant source of stress. Her depressive symptoms date back at least a year and last semester she had difficulty finishing her coursework as she tends to require a lot of sleep and missed some classes/assignments but she was awarded her Master's degree. After the degree was announced, "people assumed I quite the program" and others reaching out was triggering. When in a negative mindset she tends to compare her progress to that of other people in her cohort who are advancing and publishing. She has been taking two math classes at the suggestion of her therapist which is providing some structure and helping her to determine if she might like to switch programs. She reports poor response to any medications prescribed through [facility] or [facility] and stated that she hopes to discuss ADHD testing results with an outpatient provider soon. Reviewed that focus in treatment here will be depression, suicidality, urge to self injure. Patient confirmed that lamictal is for psych indication, not seizure and denied a history of isabel. Past Psychiatric History Current Psychiatric Diagnosis: Depression; Anxiety Outpatient Services: [facility]; [facility] Previous Psych Admissions: none Do You Have Access To A Gun?: No History of Previous Suicide Attempt: No Past Medication Trials: Wellbutrin, Sertraline, Fluoxetine, Pristiq (does note some discontinuation syndrome if misses a dose), Buspar, Vistaril. Allergies Allergy/AdvReac Type Severity Reaction Status Date / Time No Known Drug Allergies Allergy Verified 03/28/23 16:03 Home Medications Medication Instructions Recorded Confirmed Type levocetirizine 5 mg tablet (Xyzal) 5 mg PO DAILY 03/28/23 07/11/23 History desvenlafaxine 100 mg 100 mg PO DAILY 07/10/23 07/10/23 History tablet,extended release 24 hr lamotrigine 150 mg tablet 150 mg PO DAILY 07/10/23 07/10/23 History montelukast 10 mg tablet 10 mg DAILY 07/10/23 07/10/23 History omalizumab 150 mg/mL subcutaneous mg subcut 07/10/23 History syringe (Xolair) famotidine 20 mg tablet 20 mg PO BID 07/11/23 07/11/23 History Family History Family History of: Doesn't Know Family Mental Health History Comment: Maternal grandmother has schizophrenia, paternal cousin has depression Alcohol History Hx of Alcohol Use Over the Past 12 Months: Yes (occasional) AUDIT Total Score: 1 Smoking Use Have You Smoked or Used Tobacco Products in the Last 30 Days: No Smoking Status: Never smoker Substance History Hx of Prescription Med Misuse Over the Past 12 Months: No Hx of Over the Counter Med Misuse Over the Past 12 Months: No Hx of Inhalent Misuse Over the Past 12 Months: No Hx of Organic Substance Use Over the Past 12 Months: Yes (rare marijuana use) Hx of Illegal Substances/Street Drug Use Over Past 12 Months: No Problems as a Result of Past Substance Use: None Identified Personal History Living Arrangements: Apartment Living Arrangements Comments: lives alone Childhood: middle child of 3, from [place] Highest Grade Completed: Graduate School Highest Grade Completed Comment: 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) Employment Status: Student Marital Status: Single Number Of Children: 0 Beliefs That Will Affect Care: None Current Legal Problems: No Additional Comments: did not report/elaborate on trauma hx Patient History Medical History (Updated 07/11/23 @ 13:15 by Flavia Rod MD) No active medical problems Social History Smoking Status: Never smoker Preferred Language: Lebanese Communication Ability: Effective Delivery Lead Required: No Beliefs That Will Affect Care: None Feels Safe at Home: Yes Gender Identity: Female Assistive Devices: None Review of Systems Review of Systems: All systems reviewed & are unremarkable except as noted in HPI & below Physical Exam Psychiatric: Orientation: alert and oriented x 3 Apperance: appropriately dressed and appropriately groomed Eye Contact: good eye contact Motor Behavior: no abnormal motor movements Speech: normal rate/rhythm/volume of speech Affect: + depressed affect Mood: + depressed mood Thought Process: goal directed thought process Thought Content: reality based without delusions Suicidal Thoughts: denies suicidal plan (on unit) and denies suicidal intent; + reports suicidal thoughts (intermittent) Homicidal Thoughts: denies homicidal thoughts Hallucinations: no auditory hallucinations and no visual hallucinations Cognition: attention grossly intact and language grossly intact Estimated Intelligence: consistent with education level Insight: + limited insight Judgment: + limited judgement Vital Signs (Past 24 Hours): Last Vital Signs Temp 36.9 C 07/11/23 06:33 Pulse 87 07/11/23 06:34 Resp 16 07/11/23 06:33 BP 101/69 07/11/23 06:34 Pulse Ox 98 07/11/23 00:06 O2 Del Method Room Air 07/11/23 00:06 Exam Statement: A physical exam was performed in the ED by Sunny for the purposes of medical clearance. I accept that physical as correct and adequate for the purposes of the inpatient physical exam. Results & Data ([facility]) Laboratory Results Laboratory Results - last 24 hr 07/10/23 07/10/23 18:56 Unknown WBC 5.22 RBC 4.23 Hgb 12.5 Hct 36.9 L MCV 87.2 MCH 29.6 MCHC 33.9 RDW Std Deviation 38.9 RDW Coeff of Felicity 12.2 Plt Count 329 MPV 8.9 L Immature Gran % (Auto) 0.2 Neut % (Auto) 46.9 Lymph % (Auto) 43.1 Trigg % (Auto) 7.1 Eos % (Auto) 2.1 Baso % (Auto) 0.6 Neut # (Auto) 2.45 Lymph # (Auto) 2.25 Trigg # (Auto) 0.37 Eos # (Auto) 0.11 Baso # (Auto) 0.03 Immature Gran # (Auto) 0.01 Sodium 138 Potassium 3.8 Chloride 106 Carbon Dioxide 25 Anion Gap 7 BUN 19 Creatinine 0.82 Est Cr Clr Drug Dosing 106.5 Est GFR ( Amer) 115.3 Est GFR (Non-Af Amer) 99.5 BUN/Creatinine Ratio 23.2 H Glucose 102 H Calcium 9.4 Total Bilirubin 0.4 AST 13 ALT 10 Alkaline Phosphatase 67 Total Protein 7.8 Albumin 4.5 Globulin 3.3 Albumin/Globulin Ratio 1.4 TSH 3.359 Urine Color Yellow Urine Appearance Clear Urine pH 7.0 Ur Specific [place] 1.009 Urine Protein Negative Urine Glucose (UA) Negative Urine Ketones Negative Urine Blood Negative Urine Nitrite Negative Urine Bilirubin Negative Urine Urobilinogen Negative Ur Leukocyte Esterase Negative Urine Test Negative Salicylates < 3.0 L Urine Opiates Screen Neg Ur Methadone, Qual Neg Acetaminophen < 3 L Urine Barbiturates Neg Ur Phencyclidine (PCP) Neg U Amphetamin/Meth Scrn Neg MDMA (Ecstasy) Screen Neg U Benzodiazepines Scrn Neg Ur Cocaine Metabolite Neg U Marijuana (THC) Screen Neg Ethyl Alcohol mg/dL < 10.0 SARS-CoV-2, RNA, NAAT NEGATIVE Current Inpatient Medications Current Inpatient Medications: Current Inpatient Medications Acetaminophen (Acetaminophen 325 Mg Tab) 650 mg PO Q4H PRN PRN Reason: Headache or Minor Fever Stop: 08/09/23 23:03 Al Hydrox/Mg Hydrox/Simethicone (Aluminum/Magnesium Susp 30 Ml Udc) 30 ml PO Q4H PRN PRN Reason: GI Upset Stop: 08/09/23 23:03 Bismuth Subsalicylate (Bismuth Subsalicylate Liqd 236 Ml) 15 ml PO PRN PRN PRN Reason: Loose Stool Stop: 08/09/23 23:03 Cetirizine HCl (Cetirizine Hcl 10 Mg Tablet) 10 mg PO DAILY [facility] Stop: 08/10/23 08:59 Last Admin: 07/11/23 09:43 Dose: 10 mg Famotidine (Famotidine 20 Mg Tab) 20 mg PO BID [facility] Stop: 08/10/23 08:59 Last Admin: 07/11/23 09:43 Dose: 20 mg Lamotrigine (Lamotrigine 100 Mg Tab) 150 mg PO DAILY [facility] Stop: 08/10/23 08:59 Last Admin: 07/11/23 09:42 Dose: 150 mg Magnesium Hydroxide (Magnesium Hydroxide Susp 30 Ml Udc) 30 ml PO DAILY PRN PRN Reason: Constipation Stop: 08/09/23 23:03 Montelukast Sodium (Montelukast Sodium 10 Mg Tablet) 10 mg PO DAILY [facility] Stop: 08/10/23 08:59 Last Admin: 07/11/23 09:41 Dose: 10 mg Sodium Chloride (Sodium Chloride 0.65% Na Soln 45 Ml ([place])) 1 - 2 sprays NA PRN PRN PRN Reason: Nasal Dryness/Congestion Stop: 08/09/23 23:03 Venlafaxine HCl (Venlafaxine Hcl Xr 75 Mg Capxr) 75 mg PO QAM [facility] Stop: 08/10/23 09:59 Last Admin: 07/11/23 10:28 Dose: 75 mg
--- NOTE | 2023-07-11 21:56 | Electrocardiogram Report ---
Test Reason : Blood Pressure : / mmHG Vent. Rate : 070 BPM Atrial Rate : 070 BPM P-R Int : 162 ms QRS Dur : 086 ms QT Int : 410 ms P-R-T Axes : 075 063 067 degrees QTc Int : 442 ms Normal sinus rhythm Normal ECG No previous ECGs available Confirmed by Layton Palomares ([id number]) on 07/11/2023 9:55:52 PM Referred By: REFERRED SELF Confirmed By:Layton Palomares
--- NOTE | 2023-07-12 11:50 | Psychiatric Progress Note ---
Date of Service July 12, 2023 Impression / Recommendations Impression 23 yo female with hx of depression, some non specific ED symptoms and SIB hx, presented to crisis s/p hydroxyzine OD (225 mg). Overall, I spent a total of 36 minutes with this case, including review of chart, direct evaluation of the patient, counseling the patient, ordering medication, coordination with nursing/treatment team, and documentation. (1) Depression with suicidal ideation: Plan 07/12/23: The patient desires to taper and d/c lamictal as well due to lack of efficacy. Decrease to 75 mg po qam then d/c after 2 days. May be able to taper Effexor XR further tomorrow in preparation for a trial of another antidepressant or wait for ADHD testing results as an outpatient. 07/11/23: The patient was admitted to the [facility] ([facility] unit) on q15 min checks (behavioral with suicide precautions) for safety. The patient will participate in group, recreational, and milieu therapies and will be offered additional individual and family sessions as clinically appropriate. The patient would like to discontinue Lamictal and Pristiq. Reviewed that Pristiq is non-formulary and generally tapering SNRIs is advised due to risks of discontinuation syndrome. Patient agreed to a substitute Effexor XR at lower equivalent dose. 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 Chief Complaint "I had a rough evening but otherwise day OK". Review of Systems Sleep Information Total Hours of Sleep: 6 Sleep Comments: New admission overnight Meal Information Percent Meal Consumed - Breakfast: 50 Percent Meal Consumed - Lunch: 50 Percent Meal Consumed - Dinner: 100 Subjective Subjective Patient was seen & assessed and interval progress reviewed with treatment team. Patient states she is feeling better this am as engaged with peers but last night felt "really off, like how am I going to do this at home." Denies any discontinuation syndrome from switch/taper from Pristiq to Effexor XR. Physical Exam Psychiatric Orientation: alert and oriented x 3 Apperance: appropriately dressed and appropriately groomed Eye Contact: good eye contact Motor Behavior: no abnormal motor movements Speech: normal rate/rhythm/volume of speech Affect: + depressed affect Mood: + depressed mood Thought Process: goal directed thought process Thought Content: reality based without delusions Suicidal Thoughts: denies suicidal plan (on unit) and denies suicidal intent; + reports suicidal thoughts (intermittent) Homicidal Thoughts: denies homicidal thoughts Hallucinations: no auditory hallucinations and no visual hallucinations Cognition: attention grossly intact and language grossly intact Estimated Intelligence: consistent with education level Insight: + limited insight Judgment: + limited judgement Vital Signs (Past 24 Hours) Last Vital Signs Temp 36.8 C 07/12/23 06:36 Pulse 79 07/12/23 06:37 Resp 16 07/12/23 06:36 BP 121/85 07/12/23 06:37 Pulse Ox 98 07/11/23 00:06 O2 Del Method Room Air 07/11/23 00:06 Results & Data (U) Current Inpatient Medications Current Inpatient Medications: Current Inpatient Medications Acetaminophen (Acetaminophen 325 Mg Tab) 650 mg PO Q4H PRN PRN Reason: Headache or Minor Fever Stop: 08/09/23 23:03 Al Hydrox/Mg Hydrox/Simethicone (Aluminum/Magnesium Susp 30 Ml Udc) 30 ml PO Q4H PRN PRN Reason: GI Upset Stop: 08/09/23 23:03 Bismuth Subsalicylate (Bismuth Subsalicylate Liqd 236 Ml) 15 ml PO PRN PRN PRN Reason: Loose Stool Stop: 08/09/23 23:03 Cetirizine HCl (Cetirizine Hcl 10 Mg Tablet) 10 mg PO DAILY [facility] Stop: 08/10/23 08:59 Last Admin: 07/12/23 08:55 Dose: 10 mg Famotidine (Famotidine 20 Mg Tab) 20 mg PO BID [facility] Stop: 08/10/23 08:59 Last Admin: 07/12/23 08:55 Dose: 20 mg Lamotrigine (Lamotrigine 25 Mg Tab) 75 mg PO DAILY [facility] Stop: 07/14/23 09:01 Magnesium Hydroxide (Magnesium Hydroxide Susp 30 Ml Udc) 30 ml PO DAILY PRN PRN Reason: Constipation Stop: 08/09/23 23:03 Montelukast Sodium (Montelukast Sodium 10 Mg Tablet) 10 mg PO DAILY [facility] Stop: 08/10/23 08:59 Last Admin: 07/12/23 08:56 Dose: 10 mg Sodium Chloride (Sodium Chloride 0.65% Na Soln 45 Ml ([place])) 1 - 2 sprays NA PRN PRN PRN Reason: Nasal Dryness/Congestion Stop: 08/09/23 23:03 Venlafaxine HCl (Venlafaxine Hcl Xr 75 Mg Capxr) 75 mg PO QAM [facility] Stop: 08/10/23 09:59 Last Admin: 07/12/23 08:56 Dose: 75 mg Mental Health & Subst Abuse Tx Therapist Name of Therapist: [facility] [employer] Name of Potato Chip Cooker Machine: None Post Discharge Appointments Primary Care Physician Name Of Family Doctor/PCP: [facility]
[2023-07-13] MEDS: lamoTRIgine 25 MG TAB PO SCH (09:46)
--- NOTE | 2023-07-13 15:14 | Psychiatric Progress Note ---
Date of Service July 13, 2023 Impression / Recommendations Impression 23 yo female with hx of depression, some non specific ED symptoms and SIB hx, presented to crisis s/p hydroxyzine OD (225 mg). Overall hide I spent 50 minutes interviewing the patient, reviewing the record, and recording my findings. (1) Depression with suicidal ideation: 07/13/23: * I am continuing to taper in the service of discontinuing her lamotrigine and Pristiq (via venlafaxine as an intermediary). This task should be completed via taper on 07/15/23. 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 My understanding is that she has undergone testing for ADHD, and her results are currently pending. * If she qualifies for treatment with a stimulant medication, this may also help with the patient's tendency to feel overwhelmed by academics, as well as stimulant medication may help in some instances with depressed mood. Furthermore, some patients who are placed on stimulants find that their anxiety levels are actually reduced because they are able to stay on task, complete priorities, and avoid unnecessary derailment or distractions. * The patient continues to report "slight" thoughts of self injurious behaviors. She contracts for safety in the hospital, but says that she is not sure that she can commit to not harm herself intentionally after she leaves the hospital. 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 Chief Complaint " Depressed. Overwhelmed by my graduate program at [employer]". Review of Systems Sleep Information Total Hours of Sleep: 7 Sleep Comments: New admission overnight Meal Information Percent Meal Consumed - Breakfast: 50 Percent Meal Consumed - Lunch: 50 Percent Meal Consumed - Dinner: 50 Subjective Subjective Patient was seen & assessed and interval progress reviewed with treatment team. I also saw individually in order to assess her current mental status, evaluate her response to treatment, make any necessary changes in her treatment regimen in coordination with the treatment team, and address any issues that may arise. The patient gave me a brief history of the circumstances that had led to her admission. She notes that she has a history of intentional self-injurious behaviors. She engages in these behaviors while under stress, and says that they tend to relieve tension, particular when she is overwhelmed. 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 She tells me that she has found that her apartment is not particularly supportive. She admitted that she had some academic problems at first, but never fell below the middle required GPA. Her first advisor was, the patient to do, consulting and seemed not to like her. Within this context, she felt that he was being unnecessarily negative and critical. After petitioning the department, she was given a second advisor, and although the current advisor is somewhat better, he is also perceived by the patient as being unnecessarily critical and negativistic. Ms. Pratt notes that her family of origin has not been supportive of her outpatient treatment and her outpatient diagnosis of major depression and generalized anxiety. More specifically, she tells me that her parents live in [place], [place] where she, herself was raised. Her mother has told her that she believes that the concept of "major depression" is "fake," and that in order to overcome symptoms that she describes she needs to eat better and get more exercise. (I reminded the patient that good nutrition and regular exercise definitely do help with depression, but that does not make depression a "fake" illness. The patient indicated understanding.) She also said that during her most recent visit home to see her parents her mother focused on the fact that it appeared that she had gained weight, and would not let go of the issuethe degree that she criticized the patient's food choices and, the patient is worried, "never let me forget I did gain some weight." She does have a boyfriend, but she is not certain how supportive he is able to be. However, the patient does have jarek in her outpatient providers. Today, she tells me that she is still having some thoughts of intentional self injury, although she contracts to not act on these in the hospital. Nevertheless, she said that she would not necessarily feel safe leaving the hospital just yet. She had been taking lamotrigine 150 mg a day and Pristiq on an outpatient basis. Ms. Pratt reports that she feels that neither of these medications helped. I have been told that she was troubled by sedation associated with lamotrigine, but today she tells me that sedation was not a problem that she was having, but she just felt the lamotrigine at 150 mg a day was really not helping. She understood that it was for mood stabilization and impulsivity. According to staff, the patient previously acknowledges that she was not taking lamotrigine particularly faithfully, and it has been pointed out to her that this may be why it did not seem to be working. Nevertheless, the patient felt very strongly that she would like to have tapered and discontinued. this process has already started. Similarly, the patient felt that Pristiq was not helping at all with her mood. Because Pristiq is not on the hospital's formulary, a taper of Pristiq is currently being accomplished through taper of venlafaxine. Her morning dose of venlafaxine today was 75 mg, she is not experiencing any cessation effects. The plan is for the dose to be dropped to 37.5 mg tomorrow, and as tolerated, venlafaxine and lamotrigine will both be discontinued on Saturday (07/15/2023). Physical Exam Psychiatric The patient is oriented to person, place, time and situation. Patient is neatly and appropriately dressed and groomed. The patient maintains fair eye contact throughout the interview today. No abnormal involuntary movements are noted. The patient's speech is spontaneous, and delivered at a normal rate and volume. No abnormalities of speech are noted. The patient's affect appears brighter than the patient stated mood. She smiles and laughs appropriately during the interview. Some of the laughter may be related to anxiety, but in other instances, she deliberately makes witty remarks and then laughs. Patient reports that she feels depressed and. She does not describe mood swings, but says that she is really overwhelmed by her graduate program and her research demands. Patient demonstrates goal-oriented logical thought processes. Her associations are tight. The patient's thought content is devoid of any delusional material. Also, there is no evidence of any perceptual disturbances such as auditory, tactile or visual hallucinations The patient reports that she does not have suicidal intent, but admits that she is continue to have some "slight" thoughts of intentional self injury as a strategy that she has used to manage anxiety and emotional distress, particularly when she feels under a great deal of stress. However, she contracts for safety in the hospital. Her report is that when she took the overdose of hydroxyzine that led to the patient's admission (250 mg of Vistaril) she her intent was to "make [herself] sick," is a variant of a self-injurious behavior. She says that she was aware that this was not going to result in her and was unlikely to cause any serious morbidity. Ms. Pratt reports that she has never had thoughts of causing physical harm to the person or property of others, and she has no such thoughts today. Patient indicates that she has no perceptual disturbances (see above) Her immediate, short-term, and long-term memory are grossly intact. Above average Fair. She does understand that she needs to report that she is still experiencing some thoughts of self-injurious behaviors. Fair Vital Signs (Past 24 Hours) Last Vital Signs Temp 36.9 C 07/13/23 06:46 Pulse 77 07/13/23 06:46 Resp 16 07/13/23 06:46 BP 100/65 07/13/23 06:46 Pulse Ox 98 07/13/23 06:46 O2 Del Method Room Air 07/13/23 06:46 Results & Data ([facility]) Current Inpatient Medications Current Inpatient Medications: Current Inpatient Medications Acetaminophen (Acetaminophen 325 Mg Tab) 650 mg PO Q4H PRN PRN Reason: Headache or Minor Fever Stop: 08/09/23 23:03 Al Hydrox/Mg Hydrox/Simethicone (Aluminum/Magnesium Susp 30 Ml Udc) 30 ml PO Q4H PRN PRN Reason: GI Upset Stop: 08/09/23 23:03 Bismuth Subsalicylate (Bismuth Subsalicylate Liqd 236 Ml) 15 ml PO PRN PRN PRN Reason: Loose Stool Stop: 08/09/23 23:03 Cetirizine HCl (Cetirizine Hcl 10 Mg Tablet) 10 mg PO DAILY MAKEDA Stop: 08/10/23 08:59 Last Admin: 07/13/23 09:45 Dose: 10 mg Famotidine (Famotidine 20 Mg Tab) 20 mg PO BID MAKEDA Stop: 08/10/23 08:59 Last Admin: 07/13/23 09:45 Dose: 20 mg Lamotrigine (Lamotrigine 25 Mg Tab) 75 mg PO DAILY MAKEDA Stop: 07/14/23 09:01 Last Admin: 07/13/23 09:46 Dose: 75 mg Magnesium Hydroxide (Magnesium Hydroxide Susp 30 Ml Udc) 30 ml PO DAILY PRN PRN Reason: Constipation Stop: 08/09/23 23:03 Montelukast Sodium (Montelukast Sodium 10 Mg Tablet) 10 mg PO DAILY MAKEDA Stop: 08/10/23 08:59 Last Admin: 07/13/23 09:47 Dose: 10 mg Sodium Chloride (Sodium Chloride 0.65% Na Soln 45 Ml ([place])) 1 - 2 sprays NA PRN PRN PRN Reason: Nasal Dryness/Congestion Stop: 08/09/23 23:03 Venlafaxine HCl (Venlafaxine Hcl 37.5 Mg Tab) 37.5 mg PO DAILY [facility] Stop: 07/14/23 09:05 Mental Health & Subst Abuse Tx Psychiatrist Name of Psychiatrist: [facility]rist's Date Of Appointment With Psychiatric Provider: 07/31/23 Time of Appointment with Psychiatrist: 1:00 pm Psychiatric Appointment Comment: [id number], Appt with Lula Santana Therapist Name of Therapist: [facility] Steam[facility] Att[facility] Railroad Name of Steamtable Attendant Railroad: None Post Discharge Appointments Primary Care Physician Name Of Family Doctor/PCP: Billy
[2023-07-14] MEDS: VENLAFAXINE HCL 37.5 MG TAB PO SCH (08:39)
--- NOTE | 2023-07-14 18:04 | Psychiatric Progress Note ---
Date of Service July 14, 2023 Impression / Recommendations Impression 23 yo female with hx of depression, some non specific ED symptoms and SIB hx, presented to crisis s/p hydroxyzine OD (225 mg). Overall hide I spent 50 minutes interviewing the patient, reviewing the record, and recording my findings. (1) Depression with suicidal ideation: 07/14/23: The patient reports that she is feeling sad today, and notes that she has been crying most of the day. Initially, she tried to pass that off as being something that she "always" does. However, she eventually was able to talk about the fact that she felt both sad and perhaps a little abandoned by the fact that several of the patient's peers here in the hospital were discharged today, and another 1 had been discharged just a few days ago. She had felt particularly comforted and supported by these other patients, and eventually, with some assistance from me, was able to acknowledge that she felt like a failure because they had succeeded and had gotten discharged when, in fact, she had not achieved that. She noted that the others had family members that came to pick them up, while she, the patient, did not feel comfortable telling her parents of her hospitalization because they are dismissive of mental health treatment. I provided supportive psychotherapy with reflective listening, validation, emotional support, and coping strategies. I also helped the patient look at the fact that she may be distorting the level of success and the level of happiness of other people (2) ADHD: 07/14/23. Patient is awaiting the results of formal ADHD testing. However, based on my clinical judgment, largely influenced by my observations and the patient's subjective reports, I believe that she does meet criteria for ADHD. Within this context, I have offered her a trial of a stimulant medication to treat ADHD. I explained that often the diagnosis of ADHD is based on empirical factors, such as response to stimulant medications. We we will begin Adderall 10 mg twice a day at breakfast and with lunch. As noted above, the material risks as well as the anticipated benefits of Adderall were carefully reviewed with the patient, and she indicated understanding. Inventory Assets Strengths: intelligent, therapy minded Needs: improve coping, safety plan around medication Suicide Risk Level Suicide Risk Level: High-Moderate (q15 min suicide checks) Suicide Risk Level Comments: Patient reports today as she has in the past, including yesterday, that she does not have suicidal plan or intent, but she does have ongoing thoughts of intentionally injuring herself. The plan is for the patient to remain hospitalized on the locked behavioral health unit with 15-minute checks. Her suicide risk continues to be rated at high moderate. 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 Chief Complaint "I cannot stop crying. I been crying most of the day.". Review of Systems Sleep Information Total Hours of Sleep: 8 Sleep Comments: New admission overnight Meal Information Percent Meal Consumed - Breakfast: 50 Percent Meal Consumed - Lunch: 80 Percent Meal Consumed - Dinner: 100 Subjective Subjective Patient was seen & assessed and interval progress reviewed with the treatment team. In addition, I met individually with the patient in order to assess her current mental status, evaluate her response to treatment, make any necessary changes in her treatment plan, and address those matters which may arise. Almost as soon as the patient was seated in my office I looked over at her and noticed that she was crying, and having her eyes with Kleenex. I inquired, and her responses to say something such as, "I do this all the time. I just start crying for no reason." I told her that I suspected that she has a reason that she knows what it is. Ms. Pratt demurred, but when I suggested that it might have something to do with the fact that several of her peers have been discharged today, and another 1 had been discharged, believe, last Saturday, the patient began crying harder and saying that she felt that something was wrong with her that she could not get better in the same way that they did. She also acknowledges that she misses them, and that there companionship was an important part of her plan of recovery here in the hospital. One of the women was discharged today was a middle-aged woman who was about to the patient's mother's age, and who was much more understanding of mental illness and her mother had ever been. The other 2 patients were approximately the patient's own age, and they had many things in common. Added, "it is going to get lonely here at night." I seem to guess correctly when I explained that when I was her age it was very easy to assume that other people have much easier lives than I had, and that they were nikki in terms of certain characteristics that I felt that I lacked. However, I noted that very often turns out that these people who I had idealized more actually "kind of a mess" when I got to know them. My sense of inferiority to them, or my quite resentment that they did not struggle the same way I did, was not actually founded and anything that was real. The patient immediately smiled, stopped crying, and became engaged in the conversation. I had noticed what looked like superficial red patches that were parallel on her left forearm, and the patient told me that this was an example of self-injurious behaviors. She explained that she had made the thoughts about a week prior to admission, and that she had used a X-Acto knife. She notes that the knife was sharp enough, she was careful to cut very superficially, and so the pain was not excruciating, and she noted that the pain, the warm feeling of blood, and the site of blood coming out of the wounds was reassuring to the patient, and made her feel more calm and more grounded. (I confirmed that she did not have an exact an X-Acto knife or any other sharp objects on the unit.) The patient tells me that she does continue to experience thoughts of self-injurious behavior, but has continued to contract for safety and reiterated today that she would not engage in any such behavior in the hospital. I refocused our attention to the patient's medication change. She took her last dose of lamotrigine as well as her last dose of venlafaxine this morning, and I reminded her that tomorrow she would not receive either of these medications, and that they are now discontinued. Reviewed the patient's symptoms of ADHD. She tells me that for the last she remembered, including early in childhood, she always had trouble concentrating, focusing, and staying on task. She was referred to as a "daydreamer" in school, and her abdomen is to begin a project, become distracted very easily by something that would not be considered a priority, and coming in, attest that I did take her 2 hours will end up taking her 6 hours. In college, she compares the time it takes for her to complete a project on her own with the time it takes her peers, and she estimates that everything takes her about 3 times as long, again because she cannot stay focused, loses track of priorities, and very often becomes derailed. She also notes that she has difficulty listening assiduously when being directly addressed. She may begin by listening to something in someone's telling her, but realizes that at some point she is lost track of with her same because she has been distracted by something else. I told her that I, myself, had observed that on occasions when I have a meeting with her. I can see her I start to glaze over, and that while that may be more of a sign that I am mourning her, it seems to happen very quickly and usually it is on the subject matter that should not matter to her. She notes that she plans to see if the mental health professional who conducted the screening test for ADHD a while back, and the meeting will be at the end of next week, assuming that she is out of the hospital. However, the practitioner told the patient that although she is not completely reviewed the test results, her preliminary impression is that the patient definitely meets criteria for ADHD. Within that context, I explained the patient that often treatment of ADHD is an empirical science, and I told her that I would recommend that she have a trial of stimulant medications while still here in the hospital. We carefully reviewed material risk as well as anticipated benefits. I explained that stimulant medications for ADHD can be habit-forming. Also, they can cause adverse effects including, but not limited to, elevated blood pressure, serious cardiac disease such as cardiomyopathy and heart failure, headaches, 3 unity, GI distress including dyspepsia, diarrhea and constipation. Also noted that insomnia can result, especially if the medication is taken too late in the day, and, in addition, it can cause a loss of appetite which, for some, sounds like a bonus, but for others becomes a real problem when they are losing more weight, they want to. The patient has several questions and indicated understanding. Physical Exam Mental Examination Appearance: Well Groomed Eye Contact: Fleeting Contact Motor Behavior: Unremarkable Speech: Soft Mood: Depressed, Anxious and Sad Affect: Anxious, Flat, Sad and Withdrawn Thought Process: Intact Insight: Poor Judgement: Poor Psychiatric Orientation: alert and oriented x 3 Apperance: appropriately dressed and appropriately groomed Eye Contact: good eye contact Motor Behavior: no abnormal motor movements Speech: normal rate/rhythm/volume of speech Affect: + depressed affect Mood: + depressed mood Thought Process: goal directed thought process Thought Content: reality based without delusions Suicidal Thoughts: denies suicidal plan (on unit) and denies suicidal intent; + reports suicidal thoughts (intermittent) Homicidal Thoughts: denies homicidal thoughts Hallucinations: no auditory hallucinations and no visual hallucinations Cognition: attention grossly intact and language grossly intact Estimated Intelligence: consistent with education level Insight: + limited insight Judgment: + limited judgement Vital Signs (Past 24 Hours) Last Vital Signs Temp 36.6 C 07/14/23 06:13 Pulse 91 H 07/14/23 06:14 Resp 16 07/14/23 06:13 BP 88/59 L 07/14/23 06:14 Pulse Ox 98 07/14/23 06:13 O2 Del Method Room Air 07/14/23 06:13 Results & Data ([facility]) Current Inpatient Medications Current Inpatient Medications: Current Inpatient Medications Acetaminophen (Acetaminophen 325 Mg Tab) 650 mg PO Q4H PRN PRN Reason: Headache or Minor Fever Stop: 08/09/23 23:03 Al Hydrox/Mg Hydrox/Simethicone (Aluminum/Magnesium Susp 30 Ml Udc) 30 ml PO Q4H PRN PRN Reason: GI Upset Stop: 08/09/23 23:03 Amphetamine/Dextroamphetamine (Dextroamphetamine/Amphetamine Ir 20 Mg Tab) 10 mg PO BID MAKEDA Stop: 07/28/23 20:59 Bismuth Subsalicylate (Bismuth Subsalicylate Liqd 236 Ml) 15 ml PO PRN PRN PRN Reason: Loose Stool Stop: 08/09/23 23:03 Cetirizine HCl (Cetirizine Hcl 10 Mg Tablet) 10 mg PO DAILY MAKEDA Stop: 08/10/23 08:59 Last Admin: 07/14/23 08:39 Dose: 10 mg Famotidine (Famotidine 20 Mg Tab) 20 mg PO BID MAKEDA Stop: 08/10/23 08:59 Last Admin: 07/14/23 08:39 Dose: 20 mg Magnesium Hydroxide (Magnesium Hydroxide Susp 30 Ml Udc) 30 ml PO DAILY PRN PRN Reason: Constipation Stop: 08/09/23 23:03 Montelukast Sodium (Montelukast Sodium 10 Mg Tablet) 10 mg PO DAILY MAKEDA Stop: 08/10/23 08:59 Last Admin: 07/14/23 08:39 Dose: 10 mg Sodium Chloride (Sodium Chloride 0.65% Na Soln 45 Ml ([place])) 1 - 2 sprays NA PRN PRN PRN Reason: Nasal Dryness/Congestion Stop: 08/09/23 23:03 Mental Health & Subst Abuse Tx Psychiatrist Name of Psychiatrist: [facility]'s Date Of Appointment With Psychiatric Provider: 07/31/23 Time of Appointment with Psychiatrist: 1:00 pm Psychiatric Appointment Comment: [phone], Appt with Lula Santana Therapist Name of Therapist: [facility] Production Assembly Supervisor Name of Production Assembly Supervisor: None Post Discharge Appointments Primary Care Physician Name Of Family Doctor/PCP: Billy (2) 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
[2023-07-14] MEDS: diphenhydrAMINE Capsule 25 MG CAP PO ONE (22:50)
[2023-07-15] MEDS: DEXTROAMPHETAMINE/AMPHETAMINE IR 20 MG TAB PO SCH (08:47)
--- NOTE | 2023-07-15 18:08 | Psychiatric Progress Note ---
Date of Service July 14, 2023 Impression / Recommendations Impression 23 yo female with hx of depression, some non specific ED symptoms and SIB hx, presented to crisis s/p hydroxyzine OD (225 mg). Today, I spent 65 minutes meeting on several occasions with the patient, conferring with nursing staff and social work, and during related reports. (1) Depression with suicidal ideation: 07/15/23: Today, the patient reports that her mood has improved and she tells me that she is not having thoughts of suicide and, also, that she is no longer having thoughts of self-injurious behaviors. However, it must be noted that she told social services manager that she was still having some lingering thoughts of self- injurious behaviors, but continues to contract for safety in this regard. Ms. Pratt did experience some mild cessation effects earlier today that I believe we re associated with the termination affect after venlafaxine was discontinued after yesterday's dose. These features resolved fairly quickly and gone by the afternoon. She also discontinued lamotrigine as of yesterday, the patient did not take lamotrigine today because it has been discontinued. We did start Adderall immediate release 10 mg twice daily this morning. The patient told us that she is tolerating it well, says that she believes that it is starting to help with her mood because she does significantly better mood today. Yesterday, she cried for most of the day, today she has been engaging with her peers and is smiling probably much of the time. 07/14/23: The patient reports that she is feeling sad today, and notes that she has been crying most of the day. Initially, she tried to pass that off as being something that she "always" does. However, she eventually was able to talk about the fact that she felt both sad and perhaps a little abandoned by the fact that several of the patient's peers here in the hospital were discharged today, and another 1 had been discharged just a few days ago. She had felt particularly comforted and supported by these other patients, and eventually, with some assistance from me, was able to acknowledge that she felt like a failure because they had succeeded and had gotten discharged when, in fact, she had not achieved that. She noted that the others had family members that came to pick them up, while she, the patient, did not feel comfortable telling her parents of her hospitalization because they are dismissive of mental health t reatment. I provided supportive psychotherapy with reflective listening, validation, emotional support, and coping strategies. I also helped the patient look at the fact that she may be distorting the level of success and the level of happiness of other people Present on Admission?: Yes (2) ADHD: 07/15/23: Patient had her first 2 doses of Adderall 10 mg today (1 in the morning with breakfast and 1 at noon with lunch). She was interviewed after she read received the second dose of Adderall 10 mg. She reports that she feels she is tolerating it well, and notes both improvement in her mood and, in particular, mood and improved ability to concentrate. She gave several specific examples to support this. She notes that often when she is being spoken to by someone, for example in a lecture, or here on the behavioral health unit where she is in a group and listening to the watch leader, she notes that she usually becomes d istracted by something in her mind moves away from listening assiduously to the speaker. She notes that she has become adept at rearranging her facial expression periodically in order to convince the speaker that she is, in fact, listening when, actually, she is not. Today, she went into a group that was led by one of our staff therapist. Sees said that without realizing it, she was listing assiduously to "every word" the year was saying, and she was happily surprised when she realized at the end of the meeting that she could repeat the details of what had been sent to her. She notes that she feels this ability will greatly enhance her ability to focus assiduously on her schoolwork, and her research projects. 07/14/23. Patient is awaiting the results of formal ADHD testing. However, based on my clinical judgment, largely influenced by my observations and the patient's subjective reports, I believe that she does meet criteria for ADHD. Within this context, I have offered her a trial of a stimulant medication to treat ADHD. I explained that often the diagnosis of ADHD is based on empirical factors, such as response to stimulant medications. We we will begin Adderall 10 mg twice a day at breakfast and with lunch. As noted above, the material risks as well as the anticipated benefits of Adderall were carefully reviewed with the patient, and she indicated understanding. Present on Admission?: Yes Inventory Assets Strengths: intelligent, therapy minded Needs: improve coping, safety plan around medication Suicide Risk Level Suicide Risk Level: High-Moderate (q15 min suicide checks) Suicide Risk Level Comments: When I met with the patient, the patient reported that she did not have thoughts of suicide, and she also indicated that her impulse to engage in self-injurious behaviors (such as self cutting) have quieted. However, she had earlier told one of the social workers that she was still having certain thoughts of self- injurious behaviors, but continues to contract for safety in the hospital, reliably. 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 Chief Complaint "[]". Review of Systems Sleep Information Total Hours of Sleep: 8 Sleep Comments: New admission overnight Meal Information Percent Meal Consumed - Breakfast: 50 Percent Meal Consumed - Lunch: 80 Percent Meal Consumed - Dinner: 100 Subjective Subjective Patient was seen & assessed and interval progress reviewed with [treatment team] [nursing and social work] Physical Exam Psychiatric The patient is oriented to person place time and situation. Patient is appropriately dressed and groomed. Patient maintains fair eye contact There are no abnormal involuntary movements. There fine tremors of her lower extremities, a circumstance that the patient attributes to anxiety. Patient's speech is spontaneous, delivered at a normal rate and rhythm. Today, she is somewhat loquacious. Euthymic. The patient does smile and laugh appropriately several times during today's encounter. Patient's mother is reportedly "a lot better." Patient's associations are tight and goal-directed. Patient's thought content is devoid of any psychotic features. She does not exhibit any delusional material in her thought content. There are themes of self depreciation in the patient's thought content today Patient reports that she does not have suicidal thoughts. She also did not tell me that she was having thoughts of self-injurious behavior. Apparently, she did mention this earlier in an interview with one of the social workers; i.e., that she was having fleeting thoughts of intentionally causing self-harm. Patient reports no thoughts of causing physical harm to the person or property of others. There is no evidence of any perceptual disturbances. The patient's immediate, recent and remote memory is grossly intact. The patient's intelligence is estimated to be above average, given her level of education, her academic rank, vocabulary, and fund of knowledge. The patient seems to have reasonably good insight, although she admits that some of her feelings and behaviors do not seem to make sense. Patient's judgment is at this point fairly good. Vital Signs (Past 24 Hours) Last Vital Signs Temp 36.6 C 07/14/23 06:13 Pulse 91 H 07/14/23 06:14 Resp 16 07/14/23 06:13 BP 88/59 L 07/14/23 06:14 Pulse Ox 98 07/14/23 06:13 O2 Del Method Room Air 07/14/23 06:13 Results & Data ([facility]) Current Inpatient Medications Current Inpatient Medications: Current Inpatient Medications Acetaminophen (Acetaminophen 325 Mg Tab) 650 mg PO Q4H PRN PRN Reason: Headache or Minor Fever Stop: 08/09/23 23:03 Al Hydrox/Mg Hydrox/Simethicone (Aluminum/Magnesium Susp 30 Ml Udc) 30 ml PO Q4H PRN PRN Reason: GI Upset Stop: 08/09/23 23:03 Amphetamine/Dextroamphetamine (Dextroamphetamine/Amphetamine Ir 20 Mg Tab) 10 mg PO 0800,1200 [facility] Stop: 07/29/23 07:59 Bismuth Subsalicylate (Bismuth Subsalicylate Liqd 236 Ml) 15 ml PO PRN PRN PRN Reason: Loose Stool Stop: 08/09/23 23:03 Cetirizine HCl (Cetirizine Hcl 10 Mg Tablet) 10 mg PO DAILY [facility] Stop: 08/10/23 08:59 Last Admin: 07/14/23 08:39 Dose: 10 mg Famotidine (Famotidine 20 Mg Tab) 20 mg PO BID MAKEDA Stop: 08/10/23 08:59 Last Admin: 07/14/23 08:39 Dose: 20 mg Magnesium Hydroxide (Magnesium Hydroxide Susp 30 Ml Udc) 30 ml PO DAILY PRN PRN Reason: Constipation Stop: 08/09/23 23:03 Montelukast Sodium (Montelukast Sodium 10 Mg Tablet) 10 mg PO DAILY MAKEDA Stop: 08/10/23 08:59 Last Admin: 07/14/23 08:39 Dose: 10 mg Sodium Chloride (Sodium Chloride 0.65% Na Soln 45 Ml ([place])) 1 - 2 sprays NA PRN PRN PRN Reason: Nasal Dryness/Congestion Stop: 08/09/23 23:03 Mental Health & Subst Abuse Tx Psychiatrist Name of Psychiatrist: [facility] Date Of Appointment With Psychiatric Provider: 07/31/23 Time of Appointment with Psychiatrist: 1:00 pm Psychiatric Appointment Comment: [id number], Appt with Lula Santana Therapist Name of Therapist: Kodi Whatley Furniture Upholsterer Apprentice Name of Furniture Upholsterer Apprentice: None Post Discharge Appointments Primary Care Physician Name Of Family Doctor/PCP: [facility] (2) 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
[2023-07-15] MEDS: ALUMINUM/MAGNESIUM SUSP 30 ML UDC PO PRN (18:37)
[2023-07-15] MEDS: hydrOXYzine HCl 25 MG TAB PO PRN (21:51)
[2023-07-16] MEDS: DEXTROAMPHETAMINE/AMPHETAMIME IR 5 MG TAB PO SCH (13:41)
[2023-07-16] MEDS: MECLIZINE 12.5 MG TAB PO PRN (13:41)
--- NOTE | 2023-07-16 14:21 | Psychiatric Progress Note ---
Date of Service July 16, 2023 Impression / Recommendations Impression 23 yo female with hx of depression, some non specific ED symptoms and SIB hx, presented to crisis s/p hydroxyzine OD (225 mg). Today, I spent 36 minutes total on care of this patient including review of chart, direct evaluation of the patient, counseling the patient, ordering medication, coordination with nursing, and documentation. (1) Depression with suicidal ideation: 07/15/23: Today, the patient reports that her mood has improved and she tells me that she is not having thoughts of suicide and, also, that she is no longer having thoughts of self-injurious behaviors. However, it must be noted that she told social media sr strategy manager that she was still having some lingering thoughts of self- injurious behaviors, but continues to contract for safety in this regard. Ms. Pratt did experience some mild cessation effects earlier today that I believe were associated with the termination affect after venlafaxine was discontinued after yesterday's dose. These features resolved fairly quickly and gone by the afternoon. She also discontinued lamotrigine as of yesterday, the patient did not take lamotrigine today because it has been discontinued. We did start Adderall immediate release 10 mg twice daily this morning. The patient told us that she is tolerating it well, says that she believes that it is starting to help with her mood because she does significantly better mood today. Yesterday, she cried for most of the day, today she has been engaging with her peers and is smiling probably much of the time. 07/14/23: The patient reports that she is feeling sad today, and notes that she has been crying most of the day. Initially, she tried to pass that off as being something that she "always" does. However, she eventually was able to talk about the fact that she felt both sad and perhaps a little abandoned by the fact that several of the patient's peers here in the hospital were discharged today, and another 1 had been discharged just a few days ago. She had felt particu larly comforted and supported by these other patients, and eventually, with some assistance from me, was able to acknowledge that she felt like a failure because they had succeeded and had gotten discharged when, in fact, she had not achieved that. She noted that the others had family members that came to pick them up, while she, the patient, did not feel comfortable telling her parents of her ho spitalization because they are dismissive of mental health treatment. I provided supportive psychotherapy with reflective listening, validation, emotional support, and coping strategies. I also helped the patient look at the fact that she may be distorting the level of success and the level of happiness of other people (2) ADHD: 07/15/23: Patient had her first 2 doses of Adderall 10 mg today (1 in the morning with breakfast and 1 at noon with lunch). She was interviewed after she read received the second dose of Adderall 10 mg. She reports that she feels she is tolerating it well, and notes both improvement in her mood and, in particular, mood and improved ability to concentrate. She gave several specific examples to support this. She notes that often when she is being spoken to by someone, for example in a lecture, or here on the behavioral health unit where she is in a group and listening to the promotor group ticket sales, she notes that she usually becomes distracted by something in her mind moves away from listening assiduously to the speaker. She notes that she has become adept at rearranging her facial expression periodically in order to convince the speaker that she is, in fact, listening when, actually, she is not. Today, she went into a group that was led by one of our staff therapist. Sees said that without realizing it, she was listing assiduously to "every word" the year was saying, and she was happily surprised when she realized at the end of the meeting that she could repeat the details of what had been sent to her. She notes that she feels this ability will greatly enhance her ability to focus assiduously on her schoolwork, and her research projects. 07/14/23. Patient is awaiting the results of formal ADHD testing. However, based on my clinical judgment, largely influenced by my observations and the patient's subjective reports, I believe that she does meet criteria for ADHD. Within this context, I have offered her a trial of a stimulant medication to treat ADHD. I explained that often the diagnosis of ADHD is based on empirical factors, such as response to stimulant medications. We we will begin Adderall 10 mg twice a day at breakfast and with lunch. As noted above, the material risks as well as the anticipated benefits of Adderall were carefully reviewed with the patient, and she indicated understanding. Plan see care plan 07/14 and 07/[address] Canas. 07/16/23: improved since last contact but resolving discontinuation syndrome from SNRI and seemed activated on 20 mg total daily starting dose of Adderall. Will order 5 mg po BID (2nd dose 2 pm) to further trial. Inventory Assets Strengths: intelligent, therapy minded Needs: improve coping, safety plan around medication Suicide Risk Level Suicide Risk Level: High-Moderate (q15 min suicide checks) Risk Factors Assessment Do You Have Access To A Gun?: No Mental Health Diagnoses: Yes Substance Use Disorders: No Previous Attempt: No Protective Factors Assessment Responsible for Young Children: No Employed: No Stable Relationships: Yes (boyfriend 6 years in [place]) Supportive Family: Yes (sisters) Absence of Any Risk Factors Above: No Interval History Identifying Information ERIK PRATT is a 23-year-old F, [employer]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 Chief Complaint "yesterday I felt I could attend but also to shift attention would be like going through pain". Review of Systems Sleep Information Total Hours of Sleep: 2.45 Meal Information Percent Meal Consumed - Breakfast: 0 Percent Meal Consumed - Lunch: 50 Percent Meal Consumed - Dinner: 100 Nutrition Comment: Pt stated she was feeling nauseous and asked to store her dinner for a time she felt better. Subjective Subjective Patient was seen & assessed and interval progress reviewed with nursing and social work. Patient had some dizziness and N throughout the day yesterday which she attributed to d/c of Effexor XR though did not eat well with Adderall 10 mg am and noon. Patient upset in pm as parents found out she was hospitalized as they called her landlord/the police for a wellness check. Physical Exam Psychiatric Orientation: alert and oriented x 3 Apperance: appropriately dressed and appropriately groomed Eye Contact: good eye contact Motor Behavior: no abnormal motor movements Speech: normal rate/rhythm/volume of speech Affect: euthymic affect Mood: + anxious mood Thought Process: goal directed thought process Thought Content: reality based without delusions Suicidal Thoughts: denies suicidal thoughts, denies suicidal plan and denies suicidal intent Homicidal Thoughts: denies homicidal thoughts Hallucinations: no auditory hallucinations and no visual hallucinations Cognition: attention grossly intact and language grossly intact Estimated Intelligence: consistent with education level Insight: + limited insight Judgment: + limited judgement Vital Signs (Past 24 Hours) Last Vital Signs Temp 36.9 C 07/15/23 06:34 Pulse 77 07/15/23 06:35 Resp 16 07/15/23 06:34 BP 104/70 07/15/23 06:35 Pulse Ox 98 07/14/23 06:13 O2 Del Method Room Air 07/14/23 06:13 Results & Data ([facility]) Current Inpatient Medications Current Inpatient Medications: Current Inpatient Medications Acetaminophen (Acetaminophen 325 Mg Tab) 650 mg PO Q4H PRN PRN Reason: Headache or Minor Fever Stop: 08/09/23 23:03 Al Hydrox/Mg Hydrox/Simethicone (Aluminum/Magnesium Susp 30 Ml Udc) 30 ml PO Q4H PRN PRN Reason: GI Upset Stop: 08/09/23 23:03 Last Admin: 07/15/23 18:37 Dose: 30 ml Amphetamine/Dextroamphetamine (Dextroamphetamine/Amphetamime Ir 5 Mg Tab) 5 mg PO [id number] MAKEDA Stop: 07/30/23 11:29 Last Admin: 07/16/23 13:41 Dose: 5 mg Bismuth Subsalicylate (Bismuth Subsalicylate Liqd 236 Ml) 15 ml PO PRN PRN PRN Reason: Loose Stool Stop: 08/09/23 23:03 Cetirizine HCl (Cetirizine Hcl 10 Mg Tablet) 10 mg PO DAILY [facility]KEDA Stop: 08/10/23 08:59 Last Admin: 07/16/23 08:54 Dose: 10 mg Famotidine (Famotidine 20 Mg Tab) 20 mg PO BID MAKEDA Stop: 08/10/23 08:59 Last Admin: 07/16/23 08:54 Dose: 20 mg Hydroxyzine HCl (Hydroxyzine Hcl 25 Mg Tab) 25 mg PO Q6 PRN PRN Reason: Rash or anxiety Stop: 08/13/23 22:39 Last Admin: 07/16/23 03:01 Dose: 25 mg Magnesium Hydroxide (Magnesium Hydroxide Susp 30 Ml Udc) 30 ml PO DAILY PRN PRN Reason: Constipation Stop: 08/09/23 23:03 Meclizine HCl (Meclizine 12.5 Mg Tab) 12.5 mg PO Q8 PRN PRN Reason: Vertigo Stop: 08/15/23 12:57 Last Admin: 07/16/23 13:41 Dose: 12.5 mg Montelukast Sodium (Montelukast Sodium 10 Mg Tablet) 10 mg PO DAILY MAKEDA Stop: 08/10/23 08:59 Last Admin: 07/16/23 08:54 Dose: 10 mg Sodium Chloride (Sodium Chloride 0.65% Na Soln 45 Ml ([place])) 1 - 2 sprays NA PRN PRN PRN Reason: Nasal Dryness/Congestion Stop: 08/09/23 23:03 Mental Health & Subst Abuse Tx Psychiatrist Name of Psychiatrist: [facility] Date Of Appointment With Psychiatric Provider: 07/31/23 Time of Appointment with Psychiatrist: 1:00 pm Psychiatric Appointment Comment: [id number], Appt with Lula Santana Therapist Name of Therapist: [facility] Therapist's Date of Therapist Appointment: 07/22/2023 Time of Therapist Appointment: 6:00 PM Therapy Appointment Comment: Please call for earlier appointment if needed. Immigration Associate Name of Immigration Associate: None Post Discharge Appointments Primary Care Physician Name Of Family Doctor/PCP: [facility] Primary Care Provider Appointment Comment: Please follow-up as needed. Contact Information Discharge Discharge Address: [facility] [address], [address] [place] [id number] (2) 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
--- NOTE | 2023-07-16 14:55 | History & Physical ---
Date of Service July 15, 2023. Late entry. Date of service was 07/15/2023. Impression / Recommendations Impression 23 yo female with hx of depression, some non specific ED symptoms and SIB hx, presented to crisis s/p hydroxyzine OD (225 mg). Today, I spent 65 minutes meeting on several occasions with the patient, conferring with nursing staff and social work, and during related reports. (1) Depression with suicidal ideation: 07/15/23: Today, the patient reports that her mood has improved and she tells me that she is not having thoughts of suicide and, also, that she is no longer having thoughts of self-injurious behaviors. However, it must be noted that she told social security assessor that she was still having some lingering thoughts of self- injurious behaviors, but continues to contract for safety in this regard. Ms. Pratt did experience some mild cessation effects earlier today that I believe were associated with the termination affect after venlafaxine was discontinued after yesterday's dose. These features resolved fairly quickly and gone by the afternoon. She also discontinued lamotrigine as of yesterday, the patient did not take lamotrigine today because it has been discontinued. We did start Adderall immediate release 10 mg twice daily this morning. The patient told us that she is tolerating it well, says that she believes that it is starting to help with her mood because she does significantly better mood today. Yesterday, she cried for most of the day, today she has been engaging with her peers and is smiling probably much of the time. 07/14/23: The patient reports that she is feeling sad today, and notes that she has been crying most of the day. Initially, she tried to pass that off as being something that she "always" does. However, she eventually was able to talk about the fact that she felt both sad and perhaps a little abandoned by the fact that several of the patient's peers here in the hospital were discharged today, and another 1 had been discharged just a few days ago. She had felt particularly comforted and supported by these other patients, and eventually, with some assistance from me, was able to acknowledge that she felt like a failure because they had succeeded and had gotten discharged when, in fact, she had not achieved that. She noted that the others had family members that came to pick them up, while she, the patient, did not feel comfortable telling her parents of her hospitalization because they are dismissive of mental health treatment. I provided supportive psychotherapy with reflective listening, validation, emotional support, and coping strategies. I also helped the patient look at the fact that she may be distorting the level of success and the level of happiness of other people (2) ADHD: 07/15/23: Patient had her first 2 doses of Adderall 10 mg today (1 in the morning with breakfast and 1 at noon with lunch). She was interviewed after she read received the second dose of Adderall 10 mg. She reports that she feels she is tolerating it well, and notes both improvement in her mood and, in particular, mood and improved ability to concentrate. She gave several specific examples to support this. She notes that often when she is being spoken to by someone, for example in a lecture, or here on the behavioral health unit where she is in a group and listening to the group chief operator, she notes that she usually becomes distracted by something in her mind moves away from listening assiduously to the speaker. She notes that she has become adept at rearranging her facial expression periodically in order to convince the speaker that she is, in fact, listening when, actually, she is not. Today, she went into a group that was led by one of our staff therapist. Sees said that without realizing it, she was listing assiduously to "every word" the year was saying, and she was happily surprised when she realized at the end of the meeting that she could repeat the details of what had been sent to her. She notes that she feels this ability will greatly enhance her ability to focus assiduously on her schoolwork, and her research projects. 07/14/23. Patient is awaiting the results of formal ADHD testing. However, based on my clinical judgment, largely influenced by my observations and the patient's subjective reports, I believe that she does meet criteria for ADHD. Within this context, I have offered her a trial of a stimulant medication to treat ADHD. I explained that often the diagnosis of ADHD is based on empirical factors, such as response to stimulant medications. We we will begin Adderall 10 mg twice a day at breakfast and with lunch. As noted above, the material risks as well as the anticipated benefits of Adderall were carefully reviewed with the patient, and she indicated understanding. Attention deficit-hyperactivity disorder type: predominantly inattentive Qualified Code(s): F90.0 - Attention-deficit hyperactivity disorder, predominantly inattentive type Inventory Assets Strengths: intelligent, therapy minded Needs: improve coping, safety plan around medication Suicide Risk Level Suicide Risk Level: High-Moderate (q15 min suicide checks) Suicide Risk Level Comments: When I met with the patient, the patient reported that she did not have thoughts of suicide, and she also indicated that her impulse to engage in self-injurious behaviors (such as self cutting) have quieted. However, she had earlier told one of the social workers that she was still having certain thoughts of self- injurious behaviors, but continues to contract for safety in the hospital, reliably. Risk Factors Assessment Do You Have Access To A Gun?: No Mental Health Diagnoses: Yes Substance Use Disorders: No Previous Attempt: No Protective Factors Assessment Buddhism Beliefs: No : No (But in a committed romantic relationship for 6 years.) Responsible for Young Children: No Employed: No Stable Relationships: Yes (boyfriend 6 years in [place]) Supportive Family: Yes (sisters) Good Rapport with Provider: Yes Absence of Any Risk Factors Above: No Psychiatric History Identifying Data MALLORY PRATT is a 23-year-old F who currently lives in [place]. She has a history of recurrent major depressive disorder, moderate, without psychotic features. She also has a history of intentional self-injurious behaviors. Ms. Pratt was admitted on 07/10/23 22:53 on a 201 voluntary agreement for treatment of depression and suicidality Chief Complaint "The Adderall is definitely helping.". 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 She stated she is struggling in her program and has been told to drop out. She stated her lead programmer is "not very good" and she is "not progressing in my research." Mallory stated she has already changed advisors and transferring "really isn't an option at this point." Mallory stated she is "not liked in my program." She stated she lives alone and has no concern for her safety at home. She denies access to firearms. Mallory stated he is having thoughts of suicide. When asked if she had a plan of suicide she stated "well I did take those pills." Patient then stated she took the pills "to relax." Mallory denies HI or aggression. Superficial cuts were observed on left outer forearm. Mallory admit she cut her self intentionally. Mallory denies hallucinations, paranoia, or delusion based thinking. She denies any medical issues. She stated she occasionally drinks alcohol and rarely uses marijuana. She stated she is from [place]. Physician discussed inpatient treatment recommendation and benefits of inpatient treatment. Mallory stated she has a therapist though [facility]. She has a new psychiatrist and stated her medication management was through [facility] "but they told me medication won't help because my personality is the problem." The patient has confirmed that she is not happy with her graduate program and miscommunication with various professors/advisors has been a constant source of stress. Her depressive symptoms date back at least a year and last semester she had difficulty finishing her coursework as she tends to require a lot of sleep and missed some classes/assignments but she was awarded her Master's degree. After the degree was announced, "people assumed I quite the program" and others reaching out was triggering. When in a negative mindset she tends to compare her progress to that of other people in her cohort who are advancing and publishing. She has been taking two math classes at the suggestion of her therapist which is providing some structure and helping her to determine if she might like to switch programs. She reports poor response to any medications prescribed through [facility] or [facility] and stated that she hopes to discuss ADHD testing results with an outpatient provider soon. Reviewed that focus in treatment here will be depression, suicidality, urge to self injure. Patient confirmed that lamictal is for a psych indication, not seizure and denied a history of isabel. There is significant empirical evidence that the patient meets criteria for diagnosis of ADHD, inattentive type. Psychological testing results are currently pending in this regard Past Psychiatric History Current Psychiatric Diagnosis: Depression; Anxiety Do You Have Access To A Gun?: No History of Previous Suicide Attempt: No Describe Attempts in the Past: Patient reports that she has no past history of suicide attempts. Allergies Allergy/AdvReac Type Severity Reaction Status Date / Time No Known Drug Allergies Allergy Verified 03/28/23 16:03 Home Medications Medication Instructions Recorded Confirmed Type levocetirizine 5 mg tablet (Xyzal) 5 mg PO DAILY 03/28/23 07/11/23 History desvenlafaxine 100 mg 100 mg PO DAILY 07/10/23 07/10/23 History tablet,extended release 24 hr lamotrigine 150 mg tablet 150 mg PO DAILY 07/10/23 07/10/23 History montelukast 10 mg tablet 10 mg DAILY 07/10/23 07/10/23 History omalizumab 150 mg/mL subcutaneous mg subcut 07/10/23 History syringe (Xolair) famotidine 20 mg tablet 20 mg PO BID 07/11/23 07/11/23 History Family History Family History of: Doesn't Know Family Mental Health History Comment: Maternal grandmother has schizophrenia, paternal cousin has depression Alcohol History Hx of Alcohol Use Over the Past 12 Months: Yes (occasional) AUDIT Total Score: 1 Smoking Use Have You Smoked or Used Tobacco Products in the Last 30 Days: No Smoking Status: Never smoker Substance History Hx of Prescription Med Misuse Over the Past 12 Months: No Hx of Over the Counter Med Misuse Over the Past 12 Months: No Hx of Inhalent Misuse Over the Past 12 Months: No Hx of Organic Substance Use Over the Past 12 Months: Yes (rare marijuana use) Hx of Illegal Substances/Street Drug Use Over Past 12 Months: No Problems as a Result of Past Substance Use: None Identified Personal History Living Arrangements: Apartment Living Arrangements Comments: lives alone Highest Grade Completed: Graduate School Highest Grade Completed Comment: 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 Patient History Medical History (Updated 07/14/23 @ 18:02 by Bradly Canas MD) No active medical problems Social History Smoking Status: Never smoker Preferred Language: Burmese Communication Ability: Effective Comb Machine Operator Required: No Beliefs That Will Affect Care: None Feels Safe at Home: Yes Gender Identity: Female Assistive Devices: None Physical Exam Mental Examination: Appearance: Well Groomed Eye Contact: Maintains Eye Contact Motor Behavior: Unremarkable Speech: Normal (She is somewhat loquacious as her mood improves.) and Soft Mood: Depressed, Anxious and Sad Affect: Anxious, Flat, Sad and Withdrawn Thought Process: Intact Insight: Fair Judgement: Fair Psychiatric: Orientation: alert and oriented x [address] time and situation. Apperance: appropriately dressed and appropriately groomed Eye Contact: good eye contact Motor Behavior: no abnormal motor movements Speech: normal rate/rhythm/volume of speech Affect: euthymic affect Mood: + depressed mood ("Better.") Thought Process: goal directed thought process Thought Content: reality based without delusions Suicidal Thoughts: denies suicidal plan (on unit) and denies suicidal intent; + reports suicidal thoughts (intermittent) Homicidal Thoughts: denies homicidal thoughts Hallucinations: no auditory hallucinations and no visual hallucinations C ognition: attention grossly intact and language grossly intact Immediate, recent and remote memory are grossly intact. Estimated Intelligence: consistent with education level Above average, based upon academic attainment, vocabulary, and ability to understand abstract concepts. Insight: + limited insight Improved Judgment: + limited judgement Improved Vital Signs (Past 24 Hours): Last Vital Signs Temp 36.9 C 07/15/23 06:34 Pulse 77 07/15/23 06:35 Resp 16 07/15/23 06:34 BP 104/70 07/15/23 06:35 Pulse Ox 98 07/14/23 06:13 O2 Del Method Room Air 07/14/23 06:13 Results & Data ([facility]) Current Inpatient Medications Current Inpatient Medications: Current Inpatient Medications Acetaminophen (Acetaminophen 325 Mg Tab) 650 mg PO Q4H PRN PRN Reason: Headache or Minor Fever Stop: 08/09/23 23:03 Al Hydrox/Mg Hydrox/Simethicone (Aluminum/Magnesium Susp 30 Ml Udc) 30 ml PO Q4H PRN PRN Reason: GI Upset Stop: 08/09/23 23:03 Last Admin: 07/15/23 18:37 Dose: 30 ml Amphetamine/Dextroamphetamine (Dextroamphetamine/Amphetamime Ir 5 Mg Tab) 5 mg PO [id number] Stop: 07/30/23 11:29 Last Admin: 07/16/23 13:41 Dose: 5 mg Bismuth Subsalicylate (Bismuth Subsalicylate Liqd 236 Ml) 15 ml PO PRN PRN PRN Reason: Loose Stool Stop: 08/09/23 23:03 Cetirizine HCl (Cetirizine Hcl 10 Mg Tablet) 10 mg PO DAILY [facility] Stop: 08/10/23 08:59 Last Admin: 07/16/23 08:54 Dose: 10 mg Famotidine (Famotidine 20 Mg Tab) 20 mg PO BID MAKEDA Stop: 08/10/23 08:59 Last Admin: 07/16/23 08:54 Dose: 20 mg Hydroxyzine HCl (Hydroxyzine Hcl 25 Mg Tab) 25 mg PO Q6 PRN PRN Reason: Rash or anxiety Stop: 08/13/23 22:39 Last Admin: 07/16/23 03:01 Dose: 25 mg Magnesium Hydroxide (Magnesium Hydroxide Susp 30 Ml Udc) 30 ml PO DAILY PRN PRN Reason: Constipation Stop: 08/09/23 23:03 Meclizine HCl (Meclizine 12.5 Mg Tab) 12.5 mg PO Q8 PRN PRN Reason: Vertigo Stop: 08/15/23 12:57 Last Admin: 07/16/23 13:41 Dose: 12.5 mg Montelukast Sodium (Montelukast Sodium 10 Mg Tablet) 10 mg PO DAILY MAKEDA Stop: 08/10/23 08:59 Last Admin: 07/16/23 08:54 Dose: 10 mg Sodium Chloride (Sodium Chloride 0.65% Na Soln 45 Ml ([place])) 1 - 2 sprays NA PRN PRN PRN Reason: Nasal Dryness/Congestion Stop: 08/09/23 23:03
--- NOTE | 2023-07-16 15:07 | Psychiatric Progress Note ---
Date of Service July 152023 (Late Entry). Actual date of service was 07/15/23 Impression / Recommendations Impression 23 yo female with hx of depression, some non specific ED symptoms and SIB hx, presented to crisis s/p hydroxyzine OD (225 mg). Today, I spent 65 minutes meeting on several occasions with the patient, conferring with nursing staff and social work, and during related reports. I now believe the patient does have a secondary diagnosis of ADHD. This is based upon convincing empirical evidence, including the fact that the patient reports that her target symptoms of ADHD have been largely improved through the application of 2 doses of Adderall today. (1) Depression with suicidal ideation: 07/15/23: Today, the patient reports that her mood has improved and she tells me that she is not having thoughts of suicide and, also, that she is no longer having thoughts of self-injurious behaviors. However, it must be noted that she told social service technician that she was still having some lingering thoughts of self- injurious behaviors, but continues to contract for safety in this regard. Ms. Pratt did experience some mild cessation effects earlier today that I believe were associated with the termination affect after venlafaxine was discontinued after yesterday's dose. These features resolved fairly quickly and gone by the afternoon. She also discontinued lamotrigine as of yesterday, the patient did not take lamotrigine today because it has been discontinued. We did start Adderall immediate release 10 mg twice daily this morning. The patient told us that she is tolerating it well, says that she believes that it is starting to help with her mood because she does significantly better mood today. Yesterday, she cried for most of the day, today she has been engaging with her peers and is smiling probably much of the time. 07/14/23: The patient reports that she is feeling sad today, and notes that she has been crying most of the day. Initially, she tried to pass that off as being something that she "always" does. However, she eventually was able to talk about the fact that she felt both sad and perhaps a little abandoned by the fact that several of the patient's peers here in the hospital were discharged today, and another 1 had been discharged just a few days ago. She had felt particularly comforted and supported by these other patients, and eventually, with some assistance from me, was able to acknowledge that she felt like a failure because they had succeeded and had gotten discharged when, in fact, she had not achieved that. She noted that the others had family members that came to pick them up, while she, the patient, did not feel comfortable telling her parents of her hospitalization because they are dismissive of mental health treatment. I provided supportive psychotherapy with reflective listening, validation, emotional support, and coping strategies. I also helped the patient look at the fact that she may be distorting the level of success and the level of happiness of other people (2) ADHD: 07/15/23: Patient had her first 2 doses of Adderall 10 mg today (1 in the morning with breakfast and 1 at noon with lunch). She was interviewed after she read received the second dose of Adderall 10 mg. She reports that she feels she is tolerating it well, and notes both improvement in her mood and, in particular, mood and improved ability to concentrate. She gave several specific examples to support this. She notes that often when she is being spoken to by someone, for example in a lecture, or here on the behavioral health unit where she is in a group and listening to the choir leader, she notes that she usually becomes distracted by something in her mind moves away from listening assiduously to the speaker. She notes that she has become adept at rearranging her facial expression periodically in order to convince the speaker that she is, in fact, listening when, actually, she is not. Today, she went into a group that was led by one of our staff therapist. Sees said that without realizing it, she was listing assiduously to "every word" the year was saying, and she was happily surprised when she realized at the end of the meeting that she could repeat the details of what had been sent to her. She notes that she feels this ability will greatly enhance her ability to focus assiduously on her schoolwork, and her research projects. 07/14/23. Patient is awaiting the results of formal ADHD testing. However, based on my clinical judgment, largely influenced by my observations and the patient's subjective reports, I believe that she does meet criteria for ADHD. Within this context, I have offered her a trial of a stimulant medication to treat ADHD. I explained that often the diagnosis of ADHD is based on empirical factors, such as response to stimulant medications. We we will begin Adderall 10 mg twice a day at breakfast and with lunch. As noted above, the material risks as well as the anticipated benefits of Adderall were carefully reviewed with the patient, and she indicated understanding. Inventory Assets Strengths: intelligent, therapy minded Needs: improve coping, safety plan around medication Suicide Risk Level Suicide Risk Level: High-Moderate (q15 min suicide checks) Suicide Risk Level Comments: When I met with the patient, the patient reported that she did not have thoughts of suicide, and she also indicated that her impulse to engage in self-injurious behaviors (such as self cutting) have quieted. However, she had earlier told one of the social workers that she was still having certain thoughts of self- injurious behaviors, but continues to contract for safety in the hospital, reliably. 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 Chief Complaint "The Adderall is definitely helping". Review of Systems Sleep Information Sleep Comments: Pt required 2 doses of PRN Vistaril and fell asleep at 0300. Pt permitted to sleep and not awken for v/s. Meal Information Percent Meal Consumed - Breakfast: 0 Percent Meal Consumed - Lunch: 50 Percent Meal Consumed - Dinner: 100 Nutrition Comment: Pt stated she was feeling nauseous and asked to store her dinner for a time she felt better. Subjective Subjective Patient was seen & assessed and interval progress reviewed with the treatment team. I also met individually with the patient at on several occasions during the day in order to assess her current mental status, evaluate her response to treatment, make any necessary changes in her medication regimen, and address issues that may arise.Today, I spent 65 minutes meeting on several occasions with the patient, conferring with nursing staff and social work, and during related reports. (1) Depression with suicidal ideation: 07/15/23: Today, the patient reports that her mood has improved and she tells me that she is not having thoughts of suicide and, also, that she is no longer having thoughts of self-injurious behaviors. However, it must be noted that she told social service technician that she was still having some lingering thoughts of self-injurious behaviors, but continues to contract for safety in this regard. Ms. Pratt did experience some mild cessation effects earlier today that I believe were associated with the termination affect after venlafaxine was discontinued after yesterday's dose. These features resolved fairly quickly and gone by the afternoon. She also discontinued lamotrigine as of yesterday, the patient did not take lamotrigine today because it has been discontinued. We did start Adderall immediate release 10 mg twice daily this morning. The patient told us that she is tolerating it well, says that she believes that it is starting to help with her mood because she does significantly better mood today. Yesterday, she cried for most of the day, today she has been engaging with her peers and is smiling probably much of the time. 07/14/23: The patient reports that she is feeling sad today, and notes that she has been crying most of the day. Initially, she tried to pass that off as being something that she "always" does. However, she eventually was able to talk about the fact that she felt both sad and perhaps a little abandoned by the fact that several of the patient's peers here in the hospital were discharged today, and another 1 had been discharged just a few days ago. She had felt particularly comforted and supported by these other patients, and eventually, with some assistance from me, was able to acknowledge that she felt like a failure because they had succeeded and had gotten discharged when, in fact, she had not achieved that. She noted that the others had family members that came to pick them up, while she, the patient, did not feel comfortable telling her parents of her hospitalization because they are dismissive of mental health treatment. I provided supportive psychotherapy with reflective listening, validation, emotional support, and coping strategies. I also helped the patient look at the fact that she may be distorting the level of success and the level of happiness of other peoplee. Patient confirmed that lamictal is for a psych indication, not seizure and denied a history of isabel. There is significant em pirical evidence that the patient meets criteria for diagnosis of ADHD, inattentive type. Psychological testing results are currently pending in this regard Physical Exam Mental Examination Appearance: Well Groomed Eye Contact: Maintains Eye Contact Motor Behavior: Unremarkable Speech: Normal (She is somewhat loquacious as her mood improves.) and Soft Mood: Depressed, Anxious and Sad Affect: Anxious, Flat, Sad and Withdrawn Thought Process: Intact Insight: Fair Judgement: Fair Psychiatric Orientation: alert and oriented x 3 Apperance: appropriately dressed and appropriately groomed Eye Contact: good eye contact Motor Behavior: no abnormal motor movements Speech: normal rate/rhythm/volume of speech Affect: euthymic affect and + depressed affect Mood: + depressed mood ("Better.") Thought Process: goal directed thought process Thought Content: reality based without delusions Suicidal Thoughts: denies suicidal plan (on unit) and denies suicidal intent; + reports suicidal thoughts (intermittent) Homicidal Thoughts: denies homicidal thoughts Hallucinations: no auditory hallucinations and no visual hallucinations Cognition: attention grossly intact and language grossly intact Estimated Intelligence: consistent with education level Insight: + limited insight Judgment: + limited judgement Vital Signs (Past 24 Hours) Last Vital Signs Temp 36.9 C 07/15/23 06:34 Pulse 77 07/15/23 06:35 Resp 16 07/15/23 06:34 BP 104/70 07/15/23 06:35 Pulse Ox 98 07/14/23 06:13 O2 Del Method Room Air 07/14/23 06:13 Results & Data ([facility]) Current Inpatient Medications Current Inpatient Medications: Current Inpatient Medications Acetaminophen (Acetaminophen 325 Mg Tab) 650 mg PO Q4H PRN PRN Reason: Headache or Minor Fever Stop: 08/09/23 23:03 Al Hydrox/Mg Hydrox/Simethicone (Aluminum/Magnesium Susp 30 Ml Udc) 30 ml PO Q4H PRN PRN Reason: GI Upset Stop: 08/09/23 23:03 Last Admin: 07/15/23 18:37 Dose: 30 ml Amphetamine/Dextroamphetamine (Dextroamphetamine/Amphetamime Ir 5 Mg Tab) 5 mg PO [id number] Stop: 07/30/23 11:29 Last Admin: 07/16/23 13:41 Dose: 5 mg Bismuth Subsalicylate (Bismuth Subsalicylate Liqd 236 Ml) 15 ml PO PRN PRN PRN Reason: Loose Stool Stop: 08/09/23 23:03 Cetirizine HCl (Cetirizine Hcl 10 Mg Tablet) 10 mg PO DAILY [facility] Stop: 08/10/23 08:59 Last Admin: 07/16/23 08:54 Dose: 10 mg Famotidine (Famotidine 20 Mg Tab) 20 mg PO BID MAKEDA Stop: 08/10/23 08:59 Last Admin: 07/16/23 08:54 Dose: 20 mg Hydroxyzine HCl (Hydroxyzine Hcl 25 Mg Tab) 25 mg PO Q6 PRN PRN Reason: Rash or anxiety Stop: 08/13/23 22:39 Last Admin: 07/16/23 03:01 Dose: 25 mg Magnesium Hydroxide (Magnesium Hydroxide Susp 30 Ml Udc) 30 ml PO DAILY PRN PRN Reason: Constipation Stop: 08/09/23 23:03 Meclizine HCl (Meclizine 12.5 Mg Tab) 12.5 mg PO Q8 PRN PRN Reason: Vertigo Stop: 08/15/23 12:57 Last Admin: 07/16/23 13:41 Dose: 12.5 mg Montelukast Sodium (Montelukast Sodium 10 Mg Tablet) 10 mg PO DAILY [facility] Stop: 08/10/23 08:59 Last Admin: 07/16/23 08:54 Dose: 10 mg Sodium Chloride (Sodium Chloride 0.65% Na Soln 45 Ml ([place])) 1 - 2 sprays NA PRN PRN PRN Reason: Nasal Dryness/Congestion Stop: 08/09/23 23:03 Mental Health & Subst Abuse Tx Psychiatrist Name of Psychiatrist: [facility] Date Of Appointment With Psychiatric Provider: 07/31/23 Time of Appointment with Psychiatrist: 1:00 pm Psychiatric Appointment Comment: [id number], Appt with Lula Santana Therapist Name of Therapist: [facility] Date of Therapist Appointment: 07/22/2023 Time of Therapist Appointment: 6:00 PM Therapy Appointment Comment: Please call for earlier appointment if needed. Dry Food Products Mixer Name of Dry Food Products Mixer: None Post Discharge Appointments Primary Care Physician Name Of Family Doctor/PCP: [facility] Primary Care Provider Appointment Comment: Please follow-up as needed. Contact Information Discharge Discharge Address: [address], [address], [place] [address] (2) 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
--- NOTE | 2023-07-17 11:27 | Psychiatric Progress Note ---
Date of Service July 17, 2023 Impression / Recommendations Impression 23 yo female with hx of depression, some non specific ED symptoms and SIB hx, presented to crisis s/p hydroxyzine OD (225 mg). Today, I spent 38 minutes total on care of this patient including review of chart, direct evaluation of the patient, counseling the patient, ordering medication, coordination with nursing/treatment team, and documentation. (1) Depression with suicidal ideation: as per Dr. Canas: 07/15/23: Today, the patient reports that her mood has improved and she tells me that she is not having thoughts of suicide and, also, that she is no longer having thoughts of self-injurious behaviors. However, it must be noted that she told social services analyst that she was still having some lingering thoughts of self- injurious behaviors, but continues to contract for safety in this regard. Ms. Pratt did experience some mild cessation effects earlier today that I believe were associated with the termination affect after venlafaxine was discontinued after yesterday's dose. These features resolved fairly quickly and gone by the afternoon. She also discontinued lamotrigine as of yesterday, the patient did not take lamotrigine today because it has been discontinued. We did start Adderall immediate release 10 mg twice daily this morning. The patient told us that she is tolerating it well, says that she believes that it is starting to help with her mood because she does significantly better mood today. Yesterday, she cried for most of the day, today she has been engaging with her peers and is smiling probably much of the time. 07/14/23: The patient reports that she is feeling sad today, and notes that she has been crying most of the day. Initially, she tried to pass that off as being something that she "always" does. However, she eventually was able to talk about the fact that she felt both sad and perhaps a little abandoned by the fact that several of the patient's peers here in the hospital were discharged today, and another 1 had been discharged just a few days ago. She had felt particularly comforted and supported by these other patients, and eventually, with some assistance from me, was able to acknowledge that she felt like a failure because they had succeeded and had gotten discharged when, in fact, she had not achieved that. She noted that the others had family members that came to pick them up, while she, the patient, did not feel comfortable telling her parents of her hospitalization because they are dismissive of mental health treatment. I provided supportive psychotherapy with reflective listening, validation, emotional support, and coping strategies. I also helped the patient look at the fact that she may be distorting the level of success and the level of happiness of other people (2) ADHD: As per Dr. Canas: 07/15/23: Patient had her first 2 doses of Adderall 10 mg today (1 in the morning with breakfast and 1 at noon with lunch). She was interviewed after she read received the second dose of Adderall 10 mg. She reports that she feels she is tolerating it well, and notes both improvement in her mood and, in particular, mood and improved ability to concentrate. She gave several specific examples to support this. She notes that often when she is being spoken to by someone, for example in a lecture, or here on the behavioral health unit where she is in a group and listening to the safety leader, she notes that she usually becomes distracted by something in her mind moves away from listening assiduously to the speaker. She notes that she has become adept at rearranging her facial expression periodically in order to convince the speaker that she is, in fact, listening when, actually, she is not. Today, she went into a group that was led by one of our staff therapist. Sees said that without realizing it, she was listing assiduously to "every word" the year was saying, and she was happily surprised when she realized at the end of the meeting that she could repeat the details of what had been sent to her. She notes that she feels this ability will greatly enhance her ability to focus assiduously on her schoolwork, and her research projects. 07/14/23. Patient is awaiting the results of formal ADHD testing. However, based on my clinical judgment, largely influenced by my observations and the patient's subjective reports, I believe that she does meet criteria for ADHD. Within this context, I have offered her a trial of a stimulant medication to treat ADHD. I explained that often the diagnosis of ADHD is based on empirical factors, such as response to stimulant medications. We we will begin Adderall 10 mg twice a day at breakfast and with lunch. As noted above, the material risks as well as the anticipated benefits of Adderall were carefully reviewed with the patient, and she indicated understanding. Plan 07/17/23: minimal SNRI discontinuation syndrome. will attempt prior auth for A dderall if needed. see care plan 07/14 and 07/[address] Canas. 07/16/23: improved since last contact but resolving discontinuation syndrome from SNRI and seemed activated on 20 mg total daily starting dose of Adderall. Will order 5 mg po BID (2nd dose 2 pm) to further trial. Suicide Risk Level Suicide Risk Level: Moderate (q15 min suicide checks) Risk Factors Assessment Do You Have Access To A Gun?: No Mental Health Diagnoses: Yes Substance Use Disorders: No Previous Attempt: No Protective Factors Assessment Advent Beliefs: No : No (But in a committed romantic relationship for 6 years.) Responsible for Young Children: No Employed: No Stable Relationships: Yes (boyfriend 6 years in [place]) Supportive Family: Yes (sisters) Good Rapport with Provider: Yes Absence of Any Risk Factors Above: No Interval History Identifying Information ERIK PRATT is a 23-year-old F, [employer]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 Chief Complaint "still dizzy." Review of Systems Sleep Information Total Hours of Sleep: 6.5 Meal Information Percent Meal Consumed - Breakfast: 25 Percent Meal Consumed - Lunch: 50 Percent Meal Consumed - Dinner: 50 Subjective Subjective Patient was seen & assessed and interval progress reviewed with treatment team. Patient c/o dizziness throughout day, unclear response to meclizine but appeared bright and engaged in activities. Only got one dose of Adderall based on timing of am dose being afternoon. did sleep well. Physical Exam Psychiatric Orientation: alert and oriented x 3 Apperance: appropriately dressed and appropriately groomed Eye Contact: good eye contact Motor Behavior: no abnormal motor movements Speech: normal rate/rhythm/volume of speech Affect: euthymic affect Mood: no anxious mood Thought Process: goal directed thought process Thought Content: reality based without delusions Suicidal Thoughts: denies suicidal thoughts Homicidal Thoughts: denies homicidal thoughts Hallucinations: no auditory hallucinations and no visual hallucinations Cognition: attention grossly intact and language grossly intact Estimated Intelligence: consistent with education level Insight: + limited insight Judgment: + limited judgement Vital Signs (Past 24 Hours) Last Vital Signs Temp 36.1 C L 07/17/23 06:00 Pulse 102 H 07/17/23 06:05 Resp 16 07/17/23 06:00 BP 102/68 07/17/23 06:05 Pulse Ox 98 07/14/23 06:13 O2 Del Method Room Air 07/14/23 06:13 Results & Data ([facility]) Current Inpatient Medications Current Inpatient Medications: Current Inpatient Medications Acetaminophen (Acetaminophen 325 Mg Tab) 650 mg PO Q4H PRN PRN Reason: Headache or Minor Fever Stop: 08/09/23 23:03 Al Hydrox/Mg Hydrox/Simethicone (Aluminum/Magnesium Susp 30 Ml Udc) 30 ml PO Q4H PRN PRN Reason: GI Upset Stop: 08/09/23 23:03 Last Admin: 07/15/23 18:37 Dose: 30 ml Amphetamine/Dextroamphetamine (Dextroamphetamine/Amphetamime Ir 5 Mg Tab) 5 mg PO [id number] [facility] Stop: 07/30/23 11:29 Last Admin: 07/17/23 06:34 Dose: 5 mg Bismuth Subsalicylate (Bismuth Subsalicylate Liqd 236 Ml) 15 ml PO PRN PRN PRN Reason: Loose Stool Stop: 08/09/23 23:03 Cetirizine HCl (Cetirizine Hcl 10 Mg Tablet) 10 mg PO DAILY [facility] Stop: 08/10/23 08:59 Last Admin: 07/17/23 09:30 Dose: 10 mg Famotidine (Famotidine 20 Mg Tab) 20 mg PO BID [facility] Stop: 08/10/23 08:59 Last Admin: 07/17/23 09:30 Dose: 20 mg Hydroxyzine HCl (Hydroxyzine Hcl 25 Mg Tab) 25 mg PO Q6 PRN PRN Reason: Rash or anxiety Stop: 08/13/23 22:39 Last Admin: 07/16/23 03:01 Dose: 25 mg Magnesium Hydroxide (Magnesium Hydroxide Susp 30 Ml Udc) 30 ml PO DAILY PRN PRN Reason: Constipation Stop: 08/09/23 23:03 Meclizine HCl (Meclizine 12.5 Mg Tab) 12.5 mg PO Q8 PRN PRN Reason: Vertigo Stop: 08/15/23 12:57 Last Admin: 07/17/23 10:39 Dose: 12.5 mg Montelukast Sodium (Montelukast Sodium 10 Mg Tablet) 10 mg PO DAILY MAKEDA Stop: 08/10/23 08:59 Last Admin: 07/17/23 09:30 Dose: 10 mg Sodium Chloride (Sodium Chloride 0.65% Na Soln 45 Ml (Farnam)) 1 - 2 sprays NA PRN PRN PRN Reason: Nasal Dryness/Congestion Stop: 08/09/23 23:03 Mental Health & Subst Abuse Tx Psychiatrist Name of Psychiatrist: [facility] Date Of Appointment With Psychiatric Provider: 07/31/23 Time of Appointment with Psychiatrist: 1:00 pm Psychiatric Appointment Comment: [id number]) [address], Appt with Lula Santana Therapist Name of Therapist: [facility] Date of Therapist Appointment: 07/22/2023 Time of Therapist Appointment: 6:00 PM Therapy Appointment Comment: Please call for earlier appointment if needed. Claim Service Representative Name of Claim Service Representative: None Post Discharge Appointments Primary Care Physician Name Of Family Doctor/PCP: [facility] Primary Care Provider Appointment Comment: Please follow-up as needed. Contact Information Discharge Discharge Address: [facility] [address], [address] [place] [address] [place] [address] (2) 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
--- NOTE | 2023-07-18 11:10 | Discharge Summary ---
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 She stated she is struggling in her program and has been told to drop out. She stated her senior programmer is "not very good" and she is "not progressing in my research." Mallory stated she has already changed advisors and transferring "really isn't an option at this point." Mallory stated she is "not liked in my program." She stated she lives alone and has no concern for her safety at home. She denies access to firearms. Mallory stated he is having thoughts of suicide. When asked if she had a plan of suicide she stated "well I did take those pills." Patient then stated she took the pills "to relax." Mallory denies HI or aggression. Superficial cuts were observed on left outer forearm. Mallory admit she cut her self intentionally. Mallory denies hallucinations, paranoia, or delusion based thinking. She denies any medical issues. She stated she occasionally drinks alcohol and rarely uses marijuana. She stated she is from [place]. Physician discussed inpatient treatment recommendation and benefits of inpatient treatment. Mallory stated she has a therapist though [facility]. She has a new psychiatrist and stated her medication management was through [facility] "but they told me medication won't help because my personality is the problem." Today the patient confirms that she is not happy with her graduate program and miscommunication with various professors/advisors has been a constant source of stress. Her depressive symptoms date back at least a year and last semester she had difficulty finishing her coursework as she tends to require a lot of sleep and missed some classes/assignments but she was awarded her Master's degree. After the degree was announced, "people assumed I quite the program" and others reaching out was triggering. When in a negative mindset she tends to compare her progress to that of other people in her cohort who are advancing and publishing. She has been taking two math classes at the suggestion of her therapist which is providing some structure and helping her to determine if she might like to switch programs. She reports poor response to any medications prescribed through [facility] or [facility] and stated that she hopes to discuss ADHD testing results with an outpatient provider soon. Reviewed that focus in treatment here will be depression, suicidality, urge to self injure. Patient confirmed that lamictal is for psych indication, not seizure and denied a history of isabel. Physical Exam Psychiatric See admission H&P and DOD assessment. Vital Signs (Past 24 Hours) Last Vital Signs Temp 35.9 C L 07/18/23 09:52 Pulse 68 07/18/23 09:52 Resp 16 07/18/23 09:52 BP 105/71 07/18/23 09:52 Pulse Ox 98 07/18/23 09:52 O2 Del Method Room Air 07/14/23 06:13 Principal Diagnosis depression (suicidal ideation resolved) Psychiatric Data See daily stay summary. In short, safety was maintained and the patient was coop erative with care. Medication changes included discontinuation of Lamictal and Pristiq (via short course of Effexor XR) which resulted in some dizziness/discontinuation syndrome. Dr. Canas initiated a trial of Adderall for presumed ADHD (testing results from outpatient pending). Initial dose of 10 mg BID seemed activating and interfered with sleep first night though she was also upset her parents learned of her hospitalization. Her dizziness and N lessened on lower dose. She denies a personal cardiac hx or family hx of unexplained arrthymia. A session was held with her correction boyfriend who will be coming to stay with the patient on day of discharge for extra support. A safety plan was completed prior to discharge. Continuation of Adderall trial will be at discretion of outpatient prescriber based on results of testing/their discretion. Day of Discharge Assessment Today the patient voices readiness for discharge. They note improvement in mood and deny thoughts to harm self or others. Thoughts remain organized and they are improved from admission. There is no evidence of psychosis. They agree to take mediations as prescribed and keep follow-up appointments. They are stable for discharge to outpatient level of care. Transition of Care Transition Of Care Record: was reviewed with the patient Advance Directives Advance Directives Information Provided: Yes Advance Directives: No Mental Health Advance Directive: No Advance Directives on File: No Living Will: No Power of Cattle Care Worker: No Advance Directives Reason:: Declines as Mental Health Visit. Suicide Risk Level Suicide Risk Level Comments: Suicide risk at discharge is deemed low as the patient is no longer requiring 24-hr monitoring, has a safety plan, and is free of suicidal ideation at discharge. Risk Factors Assessment Do You Have Access To A Gun?: No Mental Health Diagnoses: Yes Substance Use Disorders: No Previous Attempt: No Protective Factors Assessment Mandaen Beliefs: No : No (But in a committed romantic relationship for 6 years.) Responsible for Young Children: No Employed: No Stable Relationships: Yes (boyfriend 6 years in [place]) Supportive Family: Yes (sisters) Good Rapport with Provider: Yes Absence of Any Risk Factors Above: No Tobacco Cessation at Discharge Tobacco Cessation Medication Prescribed at Discharge: Not Applicable/Non-Smoker Total Time Total Time Spent: Greater Than 30 Minutes (34 minutes) Total Time Includes: Examination of the patient, Discharge Planning and Medication Reconciliation Discharge Data Lab Results 07/10/23 07/10/23 18:56 Unknown WBC 5.22 RBC 4.23 Hgb 12.5 Hct 36.9 L MCV 87.2 MCH 29.6 MCHC 33.9 RDW Std Deviation 38.9 RDW Coeff of Felicity 12.2 Plt Count 329 MPV 8.9 L Immature Gran % (Auto) 0.2 Neut % (Auto) 46.9 Lymph % (Auto) 43.1 [place] % (Auto) 7.1 Eos % (Auto) 2.1 Baso % (Auto) 0.6 Neut # (Auto) 2.45 Lymph # (Auto) 2.25 [place] # (Auto) 0.37 Eos # (Auto) 0.11 Baso # (Auto) 0.03 Immature Gran # (Auto) 0.01 Sodium 138 Potassium 3.8 Chloride 106 Carbon Dioxide 25 Anion Gap 7 BUN 19 Creatinine 0.82 Est Cr Clr Drug Dosing 106.5 Est GFR ( Amer) 115.3 Est GFR (Non-Af Amer) 99.5 BUN/Creatinine Ratio 23.2 H Glucose 102 H Calcium 9.4 Total Bilirubin 0.4 AST 13 ALT 10 Alkaline Phosphatase 67 Total Protein 7.8 Albumin 4.5 Globulin 3.3 Albumin/Globulin Ratio 1.4 TSH 3.359 Urine Color Yellow Urine Appearance Clear Urine pH 7.0 Ur Specific [place] 1.009 Urine Protein Negative Urine Glucose (UA) Negative Urine Ketones Negative Urine Blood Negative Urine Nitrite Negative Urine Bilirubin Negative Urine Urobilinogen Negative Ur Leukocyte Esterase Negative Urine Test Negative Salicylates < 3.0 L Urine Opiates Screen Neg Ur Methadone, Qual Neg Acetaminophen < 3 L Urine Barbiturates Neg Ur Phencyclidine (PCP) Neg U Amphetamin/Meth Scrn Neg MDMA (Ecstasy) Screen Neg U Benzodiazepines Scrn Neg Ur Cocaine Metabolite Neg U Marijuana (THC) Screen Neg Ethyl Alcohol mg/dL < 10.0 SARS-CoV-2, RNA, NAAT NEGATIVE Hospital Course (1) Depression with suicidal ideation: as per Dr. Canas: 07/15/23: Today, the patient reports that her mood has improved and she tells me that she is not having thoughts of suicide and, also, that she is no longer having thoughts of self-injurious behaviors. However, it must be noted that she told social worker delinquency prevention that she was still having some lingering thoughts of self- injurious behaviors, but continues to contract for safety in this regard. Ms. Curry did experience some mild cessation effects earlier today that I believe were associated with the termination affect after venlafaxine was discontinued after yesterday's dose. These features resolved fairly quickly and gone by the afternoon. She also discontinued lamotrigine as of yesterday, the patient did not take lamotrigine today because it has been discontinued. We did start Adderall immediate release 10 mg twice daily this morning. The patient told us that she is tolerating it well, says that she believes that it is starting to help with her mood because she does significantly better mood today. Yesterday, she cried for most of the day, today she has been engaging with her peers and is smiling probably much of the time. 07/14/23: The patient reports that she is feeling sad today, and notes that she has been crying most of the day. Initially, she tried to pass that off as being something that she "always" does. However, she eventually was able to talk about the fact that she felt both sad and perhaps a little abandoned by the fact that several of the patient's peers here in the hospital were discharged today, and another 1 had been discharged just a few days ago. She had felt particularly comforted and supported by these other patients, and eventually, with some assistance from me, was able to acknowledge that she felt like a failure because they had succeeded and had gotten discharged when, in fact, she had not achieved that. She noted that the others had family members that came to pick them up, while she, the patient, did not feel comfortable telling her parents of her hospitalization because they are dismissive of mental health treatment. I provided supportive psychotherapy with reflective listening, validation, emotional support, and coping strategies. I also helped the patient look at the fact that she may be distorting the level of success and the level of happiness of other people (2) ADHD: As per Dr. Canas: 07/15/23: Patient had her first 2 doses of Adderall 10 mg today (1 in the morning with breakfast and 1 at noon with lunch). She was interviewed after she read received the second dose of Adderall 10 mg. She reports that she feels she is tolerating it well, and notes both improvement in her mood and, in particular, mood and improved ability to concentrate. She gave several specific examples to support this. She notes that often when she is being spoken to by someone, for example in a lecture, or here on the behavioral health unit where she is in a group and listening to the special agent group insurance, she notes that she usually becomes distracted by something in her mind moves away from listening assiduously to the speaker. She notes that she has become adept at rearranging her facial expression periodically in order to convince the speaker that she is, in fact, listening when, actually, she is not. Today, she went into a group that was led by one of our staff therapist. Sees said that without realizing it, she was listing assiduously to "every word" the year was saying, and she was happily surprised when she realized at the end of the meeting that she could repeat the details of what had been sent to her. She notes that she feels this ability will greatly enhance her ability to focus assiduously on her schoolwork, and her research projects. 07/14/23. Patient is awaiting the results of formal ADHD testing. However, based on my clinical judgment, largely influenced by my observations and the patient's subjective reports, I believe that she does meet criteria for ADHD. Within this context, I have offered her a trial of a stimulant medication to treat ADHD. I explained that often the diagnosis of ADHD is based on empirical factors, such as response to stimulant medications. We we will begin Adderall 10 mg twice a day at breakfast and with lunch. As noted above, the material risks as well as the anticipated benefits of Adderall were carefully reviewed with the patient, and she indicated understanding. Plan 07/17/23: minimal SNRI discontinuation syndrome. will attempt prior auth for Adderall if needed. see care plan 07/14 and 07/[address] Canas. 07/16/23: improved since last contact but resolving discontinuation syndrome from SNRI and seemed activated on 20 mg total daily starting dose of Adderall. Will order 5 mg po BID (2nd dose 2 pm) to further trial. Mental Health & Subst Abuse Tx Psychiatrist Name of Psychiatrist: [facility] Date Of Appointment With Psychiatric Provider: 07/31/23 Time of Appointment with Psychiatrist: 1:00 pm Psychiatric Appointment Comment: [address], Appt with Lula Santana Psychiatrist Release of Information: Obtained, Reviewed and Signed Therapist Name of Therapist: [facility] Therapist's Date of Therapist Appointment: 07/18/2023 Time of Therapist Appointment: 6:00 PM Therapy Appointment Comment: Please call for earlier appointment if needed. Therapist Release of Information: Obtained, Reviewed and Signed Precision Jig Grinder Name of Precision Jig Grinder: None Post Discharge Appointments Primary Care Physician Name Of Family Doctor/PCP: [facility] Primary Care Provider Appointment Comment: Please follow-up as needed. Smoking Cessation Counseling Tobacco Cessation Medication Prescribed at Discharge: Not Applicable/Non-Smoker Contact Information Discharge Discharge [address]: [address] [place] [id number] Discharge Plan Discharge Items Patient Disposition: Home - Self-Care Reason For Visit: MAJOR DEPRESSIVE DISORDER Discharge Diagnosis: same Activity: Resume your previous activity Non-emergency contact: Primary Care Provider, Psychiatrist and Therapist Call non-emergency contact if: you have any medication questions and your symptoms worsen Follow-up/Referrals: [facility] [Primary Care Provider] - Diet: Regular Addtl Attending Provider Instructions: SPECIAL CARE INSTRUCTIONS: 1. Follow through with your scheduled aftercare appointments. If unable to keep an appointment, please call to reschedule. 2. Take your medication only as prescribed. Medication should not be changed or stopped without the approval of your doctor. In the event of worsening symptoms or concerns about side effects, contact your doctor immediately. 3. Utilize new healthy coping skills, anger management skills, and stress management skills learned during your hospitalization. Journal feelings and process them with a support person. Identify stressors or situations that may result in relapse, deterioration or inappropriate behaviors and develop a plan to deal with those issues. 4. If your coping skills are ineffective and you are in crisis, contact your outpatient providers for direction. If unable to reach your providers, please call the [facility] CRISIS LINE AT , go to the [facility] walk-in center at [address], [address], [place], or go to the closest Emergency Room. 5. Avoid alcohol and un-prescribed drugs. 6. You have been provided with the Mental Health Advance Directives Pamphlet for your review. 7. Your condition is stable for discharge to outpatient level of care, but recovery is an ongoing process. Ifthoughts to harm yourself or others return, follow the safety plan developed during your stay. Planning for a safe return home includes securing weapons. Our treatment team recommends weaponsbe removed from the home until your outpatient provider reassesses your progress. In rare cases where the items themselvescannot be removed, guns and ammunitionshould be secured separatelyand keys stored by a reliable personoutside of the home. If you were admitted on an involuntary commitment, the police or other legal authorities may be involved in this process. AFTERCARE APPOINTMENTS: * Please call your insurance company prior to your scheduled appointment to confirm your aftercare providers are covered. Take your insurance information to your appointments. WHO TO CALL AND WHEN: Medical Emergencies: For questions or emergencies related to your hospital stay, please contact the Inpatient Behavioral Health Unit at [phone]. A manager strategic development is on-call 17/12 for the Behavioral Health Unit for emergencies At any time you feel your situation is an emergency, you may also call 911 immediately. Pending Studies at Discharge: No Stand-Alone Forms: My bLife, Smoking Cessation Medications and DC Order Prescriptions: New dextroamphetamine-amphetamine 5 mg Tablet 5 mg PO BID Qty: 30 0RF Rx Instructions: am and early afternoon meclizine 12.5 mg Tablet 12.5 mg PO Q8 PRN (Reason: dizziness) Qty: 10 0RF Continued levocetirizine [Xyzal] 5 mg tablet 5 mg PO DAILY Xolair 150 mg/mL syringe SUBCUT montelukast 10 mg tablet 10 mg DAILY famotidine 20 mg tablet 20 mg PO BID Discontinued lamotrigine 150 mg Tablet 150 mg PO DAILY desvenlafaxine 100 mg Tablet Extended Release 24 Hr 100 mg PO DAILY Discharge Orders: Discharge Order (Routine); Ordered 07/18/23 Ordered By: Flavia Rod Admission Data Admit Date/Time: 07/10/23 22:53 Attending Provider: Flavia Rod Admit Provider: Flavia Rod Primary Care Provider[facility] Other Interventions: Discharge Summary Assessment (RN) Last Done: 07/18/23 09:52 PSY Interdisciplinary Discharge Planning Last Done: 07/18/23 10:03 Coding Level of Care Code 37597 D/C day mgmt > 30 min Diagnoses Depression with suicidal ideation F32.A; R45.851 Attention deficit hyperactivity disorder (ADHD), predominantly inattentive type F90.0 Attention deficit-hyperactivity disorder type: predominantly inattentive
== END 2023-07-18 11:15 | disposition home or self-care (01) | DRG 881 ==
LOC: ED 18:31 → 3S 22:46
DX: R45.851 Suicidal ideations; Z81.8 Family history of other mental and behavioral disorders; F90.0 Attention-deficit hyperactivity disorder, predominantly inattentive type; F32.A Depression, unspecified